=== PATIENT | female | born 1980 | race Caucasian/White ===

== ENCOUNTER 2016-07-05 09:22 | Inpatient (IN) | payer OTHER ==
[~2016-07-05] VITALS: Ht 167.6 cm; Wt 66.7 kg
[2016-07-05] VITALS (8 sets, daily range): BP systolic 120–150; BP diastolic 68–95
[~2016-07-05 09:22] MED LIST: FLAGYL500 MG PO; FOLIC ACID1 M1 PO; KETOROLAC TROME10 M1 PO; LASIX20 M1 PO; MULTI-DAY VITA1 EACH PO; PROVENTIL HFA6.7 GM INH; Vibramycin PO
--- NOTE | 2016-07-05 09:29 | NUR ---
PT REQUEST DETOX FOR ETOH. STATES LAST DETOX A WEEK AGO AT [facility]. LAST DRINK 4 HOURS AGO. PT DENIES SI/HI
--- NOTE | 2016-07-05 09:29 | NUR ---
PT STATES HX OF SEIZURES WITH WITHDRAWL
--- NOTE | 2016-07-05 09:48 | ED PSYCHIATRIC COMPLAINT ---
See Addendum History of Present Illness General Chief Complaint: ETOH/Drug Related Complaint Stated Complaint: BIBA DETOX Source: patient, EMS Exam Limitations: clinical condition Vital Signs & Intake/Output Vital Signs & Intake/Output Vital Signs Date Time Temp Pulse Resp B/P Pulse O2 O2 Flow FiO2 Ox Delivery Rate 07/05 1712 98.8 83 16 145/86 07/05 1649 98.8 83 16 145/86 98 Room Air 07/05 1444 80 16 124/92 07/05 1444 80 16 124/92 Room Air 07/05 1310 96.8 85 16 126/71 07/05 1310 96.8 85 16 126/71 98 Room Air 07/05 1130 96.6 79 16 145/95 07/05 1130 96.6 79 16 145/95 98 Room Air 07/05 1024 98.4 84 20 120/68 07/05 0928 97.6 84 20 120/87 97 Room Air Allergies Coded Allergies: codeine (Severe, ANAPHYLAXIS 05/15/16) venom-honey bee (BEE VENOM (HONEY BEE)) (ANAPHYLAXIS 05/15/16) Reconcile Medications No Known Home Medications Triage Note: PT REQUEST DETOX FOR ETOH. STATES LAST DETOX A WEEK AGO AT [facility]. LAST DRINK 4 HOURS AGO. PT DENIES SI/HI Triage Nurses Notes Reviewed? yes Onset: Abrupt Duration: hour(s): (FEW) Timing: multiple episodes today Severity: severe Associated Symptoms: anxiety : No Patient currently breastfeeds: No HPI: This is a 35-year-old female with history of alcohol abuse who presents to the ER requesting Ativan states that she is detoxing. She states her last drink was about 6 hours ago. Denies any drug use she states that it alcohol withdrawal seizure at home to weeks ago. She states that her skin is crawling. Denies chance of . (TRAY DWYER,BRITTANY) Past History Travel History Traveled to [place] past 21 day No Medical History Any Pertinent Medical History? see below for history Neurological: NONE EENT: allergies Cardiovascular: NONE Respiratory: asthma Gastrointestinal: NONE Hepatic: hepatitis C Renal: NONE Musculoskeletal: TENDONITIS L SHOULDER R KNEE TORN MENISCUS L ROTATOR CUFF & BICEP TEAR Psychiatric: anxiety, bipolar disease, depression, ADD Endocrine: NONE Blood Disorders: NONE Cancer(s): NONE LODGING HOUSE KEEPER/Reproductive: OVARIAN CYST History of MRSA: No History of VRE: No History of CDIFF: No Pneumonia Vaccine: 07/02/14 Surgical History Surgical History: L SHOULDER PINS BREAST AUGMENTATION ENDOSCOPY R KNEE knee surgery Psychosocial History Who do you live with Friend What is your primary language Malagasy Tobacco Use: Current Daily Use Daily Tobacco Use Amount/Type: => 5 Cigarettes daily ETOH Use: alcoholic Illicit Drug Use: denies illicit drug use Family History Family History, If Any: MOTHER, , Age 50-60; Cause: Lung cancer. Relation not specified for: FH: diabetes mellitus FH: heart disease Hx Contributory? No (BRITTANY SCOTT MD) Review of Systems Review of Systems Constitutional: Denies: chills, fever. EENTM: Reports: no symptoms. Respiratory: Denies: cough, short of breath. Cardiovascular: Denies: chest pain, palpitations. GI: Denies: abdominal pain. Genitourinary: Reports: no symptoms. Musculoskeletal: Reports: no symptoms. Skin: Reports: no symptoms. Neurological/Psychological: Reports: anxiety, depressed. Hematologic/Endocrine: Denies: bruising, bleeding, polyuria, polydipsia. Immunologic/Allergic: Denies: splenectomy. All Other Systems: Reviewed and Negative (BRITTANY SCOTT MD) Physical Exam Physical Exam General Appearance: well developed/nourished, mild distress Head: atraumatic Eyes: Bilateral: PERRL, EOMI. Ears, Nose, Throat: normal pharynx, normal ENT inspection, hearing grossly normal Neck: normal inspection, supple Respiratory: normal breath sounds Cardiovascular: regular rate/rhythm Gastrointestinal: soft, non-tender Extremities: normal range of motion Neurological/Psychiatric: awake, alert, anxious Appearance/Memory/Insight: disheveled, impaired insight Behavoir/Eye Contact/Speech: belligerent, compulsive, increased rate of speech Thoughts/Hallucinations: no apparent hallucination Skin: intact, normal color, warm/dry SAD PERSONS Done? patient not suicidal (BRITTANY SCOTT MD) Progress Differential Diagnosis: ALCOHOL ABUSE, ALCOHOL DETOX, POLYSUBSTANCE ABUSE Plan of Care: Orders Procedure Date/time Status Regular Diet 07/05 D Active Pathway - chart 07/05 1820 Active Pathway - chart 07/05 1811 Active CIWA 07/05 1811 Active CASE MANAGEMENT CONSULT 07/05 1455 Active EKG 07/05 1357 Active CIWA 07/05 0951 Active URINE DRUGS OF ABUSE 07/05 950 Complete HUMAN BETA HCG SCREEN 07/05 950 Complete ETHANOL 07/05 950 Complete COMPREHENSIVE METABOLIC PANEL 07/05 950 Complete CBC WITHOUT DIFFERENTIAL 07/05 950 Complete EKG 07/05 929 Active Current Medications Sig/Bruna Start time Last Medication Dose Stop Time Status Admin Lorazepam 0.5 MG ONCE 07/10 0000 UNVr (Ativan) 07/10 0001 Lorazepam 0.5 MG Q6H 07/09 0000 UNVr (Ativan) 07/09 180 Lorazepam 0.5 MG ONCE ONE 07/08 1800 AC (Ativan) 07/08 1801 Lorazepam 1 MG Q6H 07/08 0000 UNVr (Ativan) 07/08 1201 Lorazepam 1.5 MG Q12H 07/07 599 UNVr (Ativan) 07/07 1801 Lorazepam 1 MG Q12H 07/07 0000 UNVr (Ativan) 07/07 1201 Lorazepam 1.5 MG Q6 07/06 06 UNVr (Ativan) 07/06 1801 Lorazepam 2 MG Q2P PRN 07/05 1830 UNVr (Ativan) Lorazepam 1 MG Q2P PRN 07/05 1830 UNVr (Ativan) Cyanocobalamin/ 1 BAG DAILY 07/05 1820 UNVr Thiamine/Pyridoxine 07/07 1759 (Vitamin in I.V.) Dextrose/Water 1,000 ML (D5W 1000) Laboratory Tests 07/05/16 1452: Urine Opiates Screen 248.00, Methadone Screen 52, Barbiturate Screen < 60, Ur Phencyclidine Scrn < 6.00, Amphetamines Screen 111, U Benzodiazepines Scrn 482 H, Urine Cocaine Screen < 50, Urine Cannabis Screen < 5.00 07/05/16 1305: Anion Gap 21 H, Estimated GFR > 60, BUN/Creatinine Ratio 24.3, Glucose 115 H, Calcium 9.0, Total Bilirubin 0.6, AST 25, ALT 18, Alkaline Phosphatase 90, Total Protein 7.8, Albumin 4.5, Globulin 3.3, Albumin/Globulin Ratio 1.4, Total Beta HCG NEGATIVE, CBC w Diff NO MAN DIFF REQ, RBC 4.16 L, MCV 98.9, MCH 32.8 H, RDW 14.6 H, MPV 7.0 L, Gran % 55.4, Lymphocytes % 39.0, Monocytes % 3.2, Eosinophils % 2.0, Basophils % 0.4, Absolute Granulocytes 5.1, Absolute Lymphocytes 3.6 H, Absolute Monocytes 0.3, Absolute Eosinophils 0.2, Absolute Basophils 0, PUBS MCHC 33.1, Serum Alcohol 214.0 CIWA PROTOCOL. LABS, ETOH, DETOX. (BRITTANY SCOTT MD) Initial ED EKG: NSR, LAD Prior EKG: unchanged Hand-Off Endorsed To: RAQUEL TREVINO DO ([facility]) Endorsed Time: 1389 Pending: consult (CASE MANAGEMENT), labs, other (UTOX) (BRITTANY SCOTT MD) Departure Departure Disposition: STILL A PATIENT Condition: Stable Clinical Impression Primary Impression: Alcohol abuse Secondary Impressions: Alcohol intoxication Referrals: MENA KELLY DO (PCP/Family) Departure Forms: Customer Survey General Discharge Information Prescriptions: Current Visit Scripts No Known Home Medications (BRITTANY SCOTT MD) Departure Comments 07/05/16 5:24 PM Patient signed out to me by Dr. Scott. She is pending case management approval for alcohol detox Alcohol Withdrawl Admission ED Alcohol Detox Admission d/t: DTs/Seizure w/i last year (CIWA > 8) (RAQUEL TREVINO DO) Critical Care Note Critical Care Note Critical Care Time: 30-74 min (BRITTANY SCOTT MD)
--- NOTE | 2016-07-05 10:12 | NUR ---
PT TREMULOUS, UN-COOPERATIVE. SECURITY AT BEDSIDE. DEMANDING ATIVAN.
--- NOTE | 2016-07-05 10:21 | NUR ---
PT REDIREDTED TO ROOM, EXPLAINED POLICY AND PROCEDURE RE: WANDING, CLOTHING REMOVAL. AGREEABLE AT THIS TIME. MEDICATED FOR TREMORS. STATES "1 MG IS NOT ENOUGH. THEY WERE GIVING ME 3 MG IN MY NECK".
--- NOTE | 2016-07-05 10:54 | NUR ---
VOMITED, MEDICATED WITH ATIVAN 2 MG IM AND ZOFRAN 4 MG SL.
--- NOTE | 2016-07-05 11:07 | NUR ---
MULTIPLE SCABBED AEAS AND RASH NOTED ON FACE AND NECK.
--- NOTE | 2016-07-05 11:11 | NUR ---
ACCEPTED REPORT FROM JENNIE TRAMMELL. PT STANDING IN DOORWAY PUTTING BACITRACIN ON 2 FACIAL WOUNDS (ONE ABOVE AND ONE BELOW LIPS) WHICH SHE CLAIMS IS FROM A SEIZURE AND THAT SHE HIT HER FACE ON THE PAVEMENT. PT DENIES BROKEN TEETH. PT REPORTS LAST DRINK WAS THIS MORNING. PT REPORTS SHE IS HUNGRY. WILL ASK DR FELIZ FOR DIET ORDER.
--- NOTE | 2016-07-05 12:27 | NUR ---
PT STANDING IN DOORWAY YELLING "MY SKIN IS ON FIRE!! ITS ITCHING!!" PER MD FELIZ, MEDICATED WITH 50MG PO BENADRYL. PT STATING "ITS FROM MY WITHDRAWAL!!". PT TOOK MEDICATION BUT STATING "IT WONT WORK". INFORMED OF SAME SITTER AND SECURITY IN AREA
--- NOTE | 2016-07-05 13:11 | NUR ---
PT REMINDED THAT URINE SAMPLE IS NEEDED. PT DENIES NAUSEA/VOMITING. PT REPORTS SHE IS ANXIOUS AND AGITATED. PT REPORTS HEADACHE. REQUESTING MOTRIN. DR TRAY TYLER.
[2016-07-05 13:16] LABS: ABSOLUTE BASOPHIL COUNT 0 /CUMM (0.0-0.2); ABSOLUTE EOSINOPHIL COUNT 0.2 /CUMM (0.0-0.7); ABSOLUTE GRANULOCYTE CT 5.1 /CUMM (1.4-6.5); ABSOLUTE LYMPH COUNT 3.6 /CUMM (1.2-3.4); ABSOLUTE MONOCYTE COUNT 0.3 /CUMM (0.10-0.60); BASOPHIL % 0.4 % (0.0-2.0); GRANULOCYTE % 55.4 % (42.2-75.2); HEMATOCRIT 41.1 % (37-47); MEAN CORPUSCULAR HGB 32.8 PG (27.0-31.0); MEAN CORPUSCULAR HGB CONC 33.1 G/DL (33.0-37.0); MEAN CORPUSCULAR VOLUME 98.9 FL (81.0-99.0); PLATELET COUNT 432 /CUMM (130-400); RBC DISTRIBUTION WIDTH 14.6 % (11.5-14.5); RED BLOOD CELL CT 4.16 /CUMM (4.20-5.40); WHITE BLOOD CELL COUNT 9.3 /CUMM (4.8-10.8)
--- NOTE | 2016-07-05 13:45 | NUR ---
PT REQUESTING MOTRIN FOR A HEADACHE.
--- NOTE | 2016-07-05 13:51 | NUR ---
PT MEDICATED WITH MOTRIN FOR HEADACHE. PIS 11/08.
--- NOTE | 2016-07-05 14:45 | NUR ---
PT TREMULOUS AND SWEATY. PT REPORTS SHE IS NAUSEOUS AND IS VISIBLE ANXIOUS AND AGITATED. PT STATES HER CHEST HURTS WELL.
--- NOTE | 2016-07-05 14:56 | NUR ---
URINE TRIO SENT TO LAB
--- NOTE | 2016-07-05 15:00 | NUR ---
PT MEDICATED WITH ATIVAN 1MG PO. PT STATES THAT SHE IS SEEKING DETOX.
--- NOTE | 2016-07-05 16:07 | NUR ---
PT SITTING ON BED WITH TV ON, STILL TREMULOUS WITH FLUSHED FACE. PT STATED THAT IN THE PAST SHE HAS BEEN GIVEN IV ATIVAN FOR DETOX.
--- NOTE | 2016-07-05 17:11 | NUR ---
PT REPORTS HEADACHE, ANXIETY, NAUSEA AND TREMORS. PT LYING ON BED WATCHING TV. PT STATES SHE CAN DETOX AT [facility].
--- NOTE | 2016-07-05 17:58 | NUR ---
PT BREATHALYZER = .008 PT STATES SHE WANTS TO GO HOME AND GO TO [facility] FOR DETOX.
--- NOTE | 2016-07-05 18:05 | NUR ---
DR TREVINO AT BEDSIDE FOR EVAL
--- NOTE | 2016-07-05 18:38 | NUR ---
MEDICATED PT WITH ATIVAN 2MG + 2MG PO, ALSO WITH FOLIC ACID,VIT B1 AND MULTIVITAMIN.
--- NOTE | 2016-07-05 18:48 | NUR ---
Case mgmnt TSF: I went in and introduced myself to patient. Patient is requesting etox detox at this time. I will submit information to [facility]. Case management continuing to follow.
--- NOTE | 2016-07-05 19:00 | NUR ---
PT SITTING IN ROOM WATCHING TV. PT C/O TREMORS AND ANXIETY. PT BOUNCING LEG UP AND DOWN.
--- NOTE | 2016-07-05 19:40 | NUR ---
Case Mgmnt TSF: [facility] submitted for request for auth for patient. Will continue to monitor.
--- NOTE | 2016-07-05 20:25 | NUR ---
Case Mgmnt TSF: I checked CT [facility] and still no approval yet. CM continuing to follow.
--- NOTE | 2016-07-05 21:16 | NUR ---
PT TREMULOUS, ANXIOUS, REPORTS HEADACHE. PT DENIES NAUSEA AT THIS TIME. PT COOPERATIVE AT THIS TIME.
--- NOTE | 2016-07-05 21:27 | NUR ---
PT MEDICATED WITH ATIVAN 2MG PO PRN FOR CIWA = 17
--- NOTE | 2016-07-05 22:21 | History & Physical ---
TIMOTHY CARDONA MD 07/05/160: General Information and HPI MD Statement: I have seen and personally examined RUDDY BOONE I and documented this H&P. The patient is a 35 year old F who presented with a patient stated chief complaint of [requesting alcohol detox]. Source of Information: patient Exam Limitations: no limitations History of Present Illness: 35-year-old female with PMH of alcohol abuse, alcohol withdrawal seizures, ICU admission at [place] for alcohol detox and put in medical induced coma, anxiety, bipolar disorder, depression, PID, hep C, asthma, presented to the ED requesting alcohol detox. Pt was at [facility] 1 week ago also for alcohol detox, admitted for 2 days, and discharged on 2 pills of ativan which she did not fill. She went back to drinking as soon as she got discharged. She admits to drinking liters of vodka/beer/wine, whatever "has alcohol in it". Her last drink was the day of admission, about 4 hours prior to ED presentation. Her CIWA scores in ED 24,7,12,17,17,12,18. Pain scores 10,10,5,3,0,5. She received 14 mg PO ativan and 2 mg IM ativan in the ED. A few days ago, she reported having a seizure while she smoking outside her resident. Someone found her faceplanted, and unconscious. She bit the side of her tongue but denies urinary incontinence. She also reports she has had 6 previous alcohol withdrawal seizures. On ROS, she reports feeling hot, sweating, burning sensation on her skin, formication, headache. She is also anxious with tremors. She denies suicidal ideation and any intention to harm herself or others. FH significant for alcohol abuse in her mom, dad, and grandmother. Her mother of lung cancer. She lives in a hotel by herself, and her boyfriend pays for living expenses and stays with her sometimes. She currently smokes cigarette, did not specify the amount, but has been smoking for 15 years. Denies IV drug abuse. Pt was on methadone for opiate abuse in the past, but has been off since May 2016, and has been receiving naltrexone. She is due to her next naltrexone injection on Jul 11. She is allergic to codeine and her only meds are wellbutrin 150 for depression and naltrexone. Allergies/Medications Allergies: Coded Allergies: codeine (Severe, ANAPHYLAXIS 05/15/16) venom-honey bee (BEE VENOM (HONEY BEE)) (ANAPHYLAXIS 05/15/16) Home Med list No Known Home Medications Past History Travel History Traveled to [place] past 21 day No Medical History Neurological: NONE EENT: allergies Cardiovascular: NONE Respiratory: asthma Gastrointestinal: NONE Hepatic: hepatitis C Renal: NONE Musculoskeletal: TENDONITIS L SHOULDER R KNEE TORN MENISCUS L ROTATOR CUFF & BICEP TEAR Psychiatric: anxiety, bipolar disease, depression, ADD Endocrine: NONE Blood Disorders: NONE Cancer(s): NONE DIE CAST OPERATOR/Reproductive: OVARIAN CYST History of MRSA: No History of VRE: No History of CDIFF: No Surgical History Surgical History: L SHOULDER PINS BREAST AUGMENTATION ENDOSCOPY R KNEE knee surgery Past Family/Social History Family History Relations & Conditions if any MOTHER, , Age 50-60; Cause: Lung cancer. Relation not specified for: FH: diabetes mellitus FH: heart disease Psychosocial History Where do you live? Other (hotel) Who Do You Live With? self Services at Home: None Primary Language: Korean Smoking Status: Current Everyday Smoker ETOH Use: alcoholic Illicit Drug Use: denies illicit drug use Functional Ability ADLs Independent: dressing, eating, toileting, bathing. Ambulation: independent IADLs Independent: shopping, housework, finances, food prep, telephone, transportation , medication admin. Review of Systems Review of Systems Constitutional: Reports: chills, diaphoresis. Denies: fever. EENTM: Denies: visual changes (denies seeing sparkles). Cardiovascular: Denies: chest pain, palpitations. Respiratory: Denies: cough, short of breath. GI: Denies: abdominal pain, bloating. Exam & Diagnostic Data Last 24 Hrs of Vital Signs/I&O Vital Signs Date Time Temp Pulse Resp B/P Pulse O2 O2 Flow FiO2 Ox Delivery Rate 07/06 0022 97.8 74 16 142/79 98 07/05 2240 97.5 99 16 145/90 99 Room Air 07/05 2238 97.5 99 16 145/90 07/05 2113 97.1 93 16 150/94 95 Room Air 07/05 2112 97.1 93 16 150/94 07/05 1900 97.1 99 16 150/94 07/05 1900 97.1 99 16 150/94 95 Room Air 07/05 1712 98.8 83 16 145/86 07/05 1649 98.8 83 16 145/86 98 Room Air 07/05 1444 80 16 124/92 07/05 1444 80 16 124/92 Room Air 07/05 1310 96.8 85 16 126/71 07/05 1310 96.8 85 16 126/71 98 Room Air 07/05 1130 96.6 79 16 145/95 07/05 1130 96.6 79 16 145/95 98 Room Air 07/05 1024 98.4 84 20 120/68 07/05 0928 97.6 84 20 120/87 97 Room Air Intake & Output 07/06 0800 07/06 0000 07/05 1600 Intake Total 10 Output Total Balance 10 Intake, Oral 10 Patient 68.039 kg Weight Physical Exam General Appearance Alert, Oriented X3, Cooperative, Mild Distress Skin laceration above her lip and her chin HEENT Atraumatic, PERRLA, EOMI, Mucous Membr. moist/pink Neck Supple Cardiovascular Regular Rate, Normal S1, Normal S2, No Murmurs, Gallops, Rubs Lungs Clear to Auscultation, Normal Air Movement Abdomen Normal Bowel Sounds, Soft, No Tenderness Neurological Normal Speech Extremities No Edema Vascular Normal Pulses Last 24 Hrs of Labs/Angel: Laboratory Tests 07/05/16 1452: Urine Opiates Screen 248.00, Methadone Screen 52, Barbiturate Screen < 60, Ur Phencyclidine Scrn < 6.00, Amphetamines Screen 111, U Benzodiazepines Scrn 482 H, Urine Cocaine Screen < 50, Urine Cannabis Screen < 5.00 07/05/16 1305: Anion Gap 21 H, Estimated GFR > 60, BUN/Creatinine Ratio 24.3, Glucose 115 H, Calcium 9.0, Phosphorus Pending, Magnesium Pending, Total Bilirubin 0.6, AST 25, ALT 18, Alkaline Phosphatase 90, Creatine Kinase Pending, Total Protein 7.8, Albumin 4.5, Globulin 3.3, Albumin/Globulin Ratio 1.4, Total Beta HCG NEGATIVE, CBC w Diff NO MAN DIFF REQ, RBC 4.16 L, MCV 98.9, MCH 32.8 H, RDW 14.6 H, MPV 7.0 L, Gran % 55.4, Lymphocytes % 39.0, Monocytes % 3.2, Eosinophils % 2.0, Basophils % 0.4, Absolute Granulocytes 5.1, Absolute Lymphocytes 3.6 H, Absolute Monocytes 0.3, Absolute Eosinophils 0.2, Absolute Basophils 0, PUBS MCHC 33.1, Serum Alcohol 214.0 Assessment/Plan Assessment: 35-year-old female with PMH of alcohol abuse, alcohol withdrawal seizures, ICU admission at [place] for alcohol detox and put in medical induced coma, anxiety, bipolar disorder, depression, PID, hep C, asthma, requesting alcohol detox. Serum alcohol level 214, with AG 21. Max CIWA score 24, mostly tremors and anxiety. Urine benzo 382, Urine opiate 248, methadone 52. # Alcohol detox * Ativan 2 mg q6 PO scheduled, ativan taper. * Ativan 1mg or 2mg IV PRN CIWA * CIWA q2 * Social work consult in AM * Consider psych consult in AM * 3 X banana bag * 3 days of folic acid and thiamine * Multivitamin daily * Check phos, mag, CPK now and in AM # Depression * Continue wellbutrin 150 # Hx of opiate abuse - Next naltrexone due Jul 11 Diet: Regular DVT ppx: mech and pharm FULL CODE As Ranked By This Provider Problem List: 1. Alcohol abuse 2. Alcohol intoxication Core Measures/Miscellaneous Acute Coronary Syndrome ACS Diagnosis: No Cerebrovascular Accident CVA/TIA Diagnosis: No Congestive Heart Failure CHF Diagnosis: No Venous Thromboembolism VTE Risk Factors: Smoking VTE Prophylaxis Ordered Inpt: Mech & Pharm No Mech VTE prophylaxis d/t: No contraindications No VTE Pharm Prophylaxis d/t: No contraindications VTE Diagnosis: No VTE Type: NONE VTE Confirmed by (Test): NONE Severe Sepsis Severe Sepsis Present: No Septic Shock Septic Shock Present: No Miscellaneous Documentation Attending Case Discussed With: ANTONIA DC MD Primary Care Physician: MENA KELLY DO Patient sees these Specialists N/A Level of Patient Care: General Medicine ANTONIA DC 07/06/16 0206: Attending MD Review Statement Attending Statement Attending MD Statement: examined this patient, discuss w/resident/PA/COST ACCOUNTING ANALYST, agreed w/resident/PA/COST ACCOUNTING ANALYST, reviewed EMR data (avail), reviewed images, amended to note Attending Assessment/Plan: CC: Alcohol detox PMHx: Alcohol related seizure, alcohol abuse, previous infection of PID. Depression ?Hepatitis C?, Patient currently on naltrexone Patient presented for all called detox. Patient was admitted in [facility] about a 1 week back for similar complaints. 2 days after the discharge patient started to drink again. Patient does not quantify her alcohol intake. Last drink was a few hours before admission. Patient had a recent episode of loss of consciousness, she refers this as a seizure episode, she fell on her face and hit her upper lip. But did not follow in the hospital after that, wound is healing now. She does not recall any tongue bite at that episode or bowel bladder incontinence. Patient had multiple seizures secondary to alcohol in the past. Vitals: Afebrile, HR, RR, BP, O2 saturation in acceptable range. On examination anxious, a O 3, follows instructions, not delirious. Neck supple, no lymphadenopathy, tongue moist, healing wound on upper lip. CVS: S1-S2, RRR. RS: Clear air entry bilaterally present. Abdomen: Soft, NT, ND and the bowel sounds present, no right upper quadrant tenderness. No significant rashes are cellulitis, no focal neurological deficit. Labs: CBC, BMP, LFT, in acceptable range except bicarbonate 22 and anion gap 21. Alcohol level 214. A and P #1 alcohol withdrawal: Patient does not quantify it but admits heavy alcohol usage. Alcohol level high at presentation. Patient CIWA score high. Continue scheduled and when necessary Ativan as discussed according to CIWA score. Replace thiamine and folic acid. Continue gentle hydration. Seizure precautions. Check CPK. Check magnesium and phosphorus, replace if low. Patient's liver function appears normal, no right upper quadrant tenderness. #2 AG Acidosis: Probably secondary to alcohol along with starvation ketosis. Continue gentle hydration. #3 depression continue Wellbutrin. #4 DVT prophylaxis with Lovenox, avoid opiates, currently patient on naltrexone, next dose in July. GUIDO FRANK 07/06/16 0415: Resident Review Statement Resident Statement: examined this patient, discussed with international tax manager, agreed with international tax manager, reviewed EMR data (avail), reviewed images, amended to note Other Findings: This is 35-year-old female with PMH of alcohol abuse, multiple alcohol withdrawal seizures, ICU admission at [place] for alcohol detox and put in medical induced coma, anxiety, bipolar disorder, depression, pelvic inflammatory disease, hepatitis C, asthma, presented to the ED requesting alcohol detox. Last drink was today, patient states she drank a lot of vodka, beer and wine. Patient reports recent seizure with tongue bite. She reports visual hallucination, sweating, tremor, feeling anxious, burning sensation on her skin, formication. Patient deny any homicidal or suicidal ideation. Physical examination, lab and imaging as above. Problem list: -Alcohol withdrawal/detoxication -Hypokalemia, hypomagnesemia -Anoin gap metabolic acidosis -Thrombocytosis Plan: -Admit patient to general medicine floor -Vitals every shift -Start the patient on Ativan 2 mg by mouth every 6 -Start the patient on Ativan IV per [facility] protocol -Repeat potassium and magnesium as needed -Repeat CBC and basic panel electrolytes in the morning -Continue the patient IV banana bag -Continue the patient multivitamin supplement, thiamine and folic acid -fur floor worker consultation -Regular diet -Pain pathway -DVT prophylaxis: subcutaneous Lovenox -Full code
--- NOTE | 2016-07-05 22:38 | NUR ---
MEDICATED PT WITH ATIVAN 2MG AND SEROQUEL 50MG PO. PT CALM ANC COOPERATIVE AT THIS TIME.
[2016-07-06] VITALS (13 sets, daily range): BP systolic 140–167; BP diastolic 78–104
--- NOTE | 2016-07-06 00:30 | NUR ---
CO FEELINGJITTERY."I NEED MY ATIVAN"
--- NOTE | 2016-07-06 00:35 | NUR ---
VS TAKEN. PER PROTOCOL ATIVAN 2MG GIVEN.
--- NOTE | 2016-07-06 02:07 | Admission Certification ---
Admission Certification Certification Statement - As attending physician, I certify that at the time of - admission, based on clinical presentation, severity of - symptoms, need for further diagnostic testing and - therapeutic interventions, and risk of adverse outcomes - without in-hospital treatment, in my clinical assessment, - this patient requires an acute hospital stay for a minimum - of two nights or longer. I have also considered psychsocial - factors such as support system, advanced age, financial - issues, cognitive issues, and failed out-patient treatments, - past re-admission history, safety of patient, and lack of - compliance as applicable. Specific rationale supporting this admission is: Alcohol detox.
--- NOTE | 2016-07-06 04:29 | NUR ---
PT FRIEND RODNEY STOPPED AND DROPPED OFF HER CELL PHONE, LOCKED IN ER SAFE
--- NOTE | 2016-07-06 06:05 | NUR ---
AWAKE VERY ANXIOUS. SWEATY--PAPER SCRUBS CHANGED.
--- NOTE | 2016-07-06 06:15 | NUR ---
IV INSERTED AFTER GREAT DIFFICULTY NS UP 75ML/HR MAG SULFATE 1G IN 100ML NS AT 25ML/HR HUNG AT THIS TIME
--- NOTE | 2016-07-06 08:37 | NUR ---
SPOKE TO DR WESLEY SILVA REGARDING NS FLUIDS AND ALSO BANANA BAG ORDERS, WILL DC BANANA BAG.
--- NOTE | 2016-07-06 08:43 | PN- Housestaff ---
ROAUL DWYER,[facility] 07/06/16 0842: Subjective Follow-up For: Alcohol withdrawal seizures Subjective: Patient seen and examined this morning. She was lying in bed tremulous, anxious , sweating, her Ciwa has been 24 upon admission, today 17, vitals within normal limits. No other complaints Review of Systems Constitutional: Reports: see HPI. Objective Last 24 Hrs of Vital Signs/I&O Vital Signs Date Time Temp Pulse Resp B/P Pulse O2 O2 Flow FiO2 Ox Delivery Rate 07/06 1658 97.9 66 20 162/102 07/06 1605 97.9 66 20 162/102 99 Room Air 07/06 1248 98.0 88 20 140/80 07/06 1100 97.2 56 18 149/88 07/06 1047 97.2 56 18 149/88 99 Room Air 07/06 0830 96.4 61 16 164/93 96 Room Air 07/06 0815 96.4 61 16 164/93 / 0615 96.8 60 16 167/95 / 0615 96.8 60 16 167/95 96 Room Air 07/06 0031 97.8 74 16 142/79 /05 0022 97.8 74 16 142/79 98 / 2240 97.5 99 16 145/90 99 Room Air 07/05 2239 97.5 99 16 145/90 / 2114 97.1 93 16 150/94 95 Room Air / 2113 97.1 93 16 150/94 /04 1900 97.1 99 16 150/94 / 1900 97.1 99 16 150/94 95 Room Air Physical Exam General Appearance: Alert, Oriented X3, No Acute Distress Cardiovascular: Regular Rate, Normal S1, Normal S2 Lungs: Clear to Auscultation, Normal Air Movement Abdomen: Normal Bowel Sounds, Soft, No Tenderness Extremities: No Clubbing, No Cyanosis, No Edema Orders CIWA Score (last 24 hrs): 24, 17 Assessment/Plan Assessment: 35-year-old female with PMH of alcohol abuse, alcohol withdrawal seizures, ICU admission at [place] for alcohol detox and put in medical induced coma, anxiety, bipolar disorder, depression, PID, hep C, asthma, requesting alcohol detox. Serum alcohol level 214, with AG 21. Max CIWA score 24, mostly tremors and anxiety. Urine benzo 382, Urine opiate 248, methadone 52. # Alcohol detox * Ativan 2 mg q4 PO scheduled, ativan taper. * Ativan 2mg IV PRN CIWA * Social work consult * 3 X banana bag * 3 days of folic acid and thiamine * Multivitamin daily * will f/u phos, mag. # Depression * Continue wellbutrin 150 # Hx of opiate abuse - Next naltrexone due Jul 11 Diet: Regular DVT ppx: mech and pharm Problem List: 1. Alcohol intoxication Pain Ratin Pain Location: ne Pain Goal: Remain pain free Pain Plan: mil pp Tomorrow's Labs & Rationales: none JESSICA DWYER,JO 07/06/16 1136: Attending MD Review Statement Attending Statement Attending MD Statement: examined this patient, discuss w/resident/PA/L TACKER, agreed w/resident/PA/L TACKER, reviewed EMR data (avail), discussed with nursing, amended to note Attending Assessment/Plan: Patient seen and examined. Admitted for alcohol withdrawal syndrome. CIWA has been as high as 20 overnight. She has received about 80 mg of Ativan this presentation overnight. She is currently agitated and tremulous. She is mildly tachycardic. Recommendation: -Change her current Ativan regimen to 2 mg orally every 4 hours and 2 mg IV when necessary breakthrough. - Change IV fluids to lactated Ringer that 150 mL an hour. -Maintain fall and seizure precautions -Supplement magnesium and monitor serum chemistry and magnesium levels every 48 hours to ensure stability of her magnesium and potassium levels. -Continue her home regimen for depression and bipolar disorder. -field crop farmworker follow-up.
--- NOTE | 2016-07-06 10:00 | NUR ---
PT SLEEPING AT THIS TIME. RR EVEN AND UNLABORED. WILL CTM
--- NOTE | 2016-07-06 13:38 | NUR ---
PT ADMITTED TO ROOM 223-2 ROOM NOT READY AT THIS TIME
--- NOTE | 2016-07-06 14:13 | NUR ---
REPORT CALLED TO [address] [place] [address] Sav RODRIGUEZ. DISTRIBUTION CALLED FOR TRANSPORT TO ROOM 223.
--- NOTE | 2016-07-06 14:49 | NUR ---
MED WITH ATIVAN 2MG PO, TOLERATED WELL. AWAITING DISTRIBUTION TO ROOM 223.
--- NOTE | 2016-07-06 15:24 | NUR ---
TRANSPORT HERE FOR PT
--- NOTE | 2016-07-06 15:38 | NUR ---
Referral received this am via electronic grade recorder. This is a 35 year old female, admitted to the hospital last evening for a voluntary detox. She has been placed on the CIWA and has had some significant symptoms including nausea and vommiting; tremors, anxiety, sweats, visual hallucinations and headaches. She also has had 19 mg. of ativan in 24 hours. Will follow to better assess for interest and motivation in aftercare plans.
[2016-07-07] VITALS (15 sets, daily range): BP systolic 120–156; BP diastolic 80–96
--- NOTE | 2016-07-07 00:54 | NUR ---
1530 PATIENT ARRIVED TO FLOOR. BED LOW AND LOCKED. CALL LIGHT WITHIN REACH ALERT AND ORIENTED X 3. DENIES CHEST PAIN. ON ROOM AIR MEDICATION GIVEN FOR PAIN ATIVAN GIVEN PER CIWA PROTOCOL. WILL CONTINUE TO MONITOR
--- NOTE | 2016-07-07 07:58 | PN- Housestaff ---
RAOUL DWYER,[facility] 07/07/16 0758: Subjective Follow-up For: Alcohol withdrawal seizures Subjective: Patient seen and examined this morning. She was lying in bed in no acute distress. She still is complaining of being tremulous, anxious, sweaty, no hallucination, no seizures. CIWA overnight 0,0,9. Vitals wnl. Review of Systems Constitutional: Denies: chills, fever. Cardiovascular: Denies: chest pain, palpitations. Respiratory: Denies: cough, short of breath. Gastrointestinal: Denies: abdominal pain, constipation, diarrhea, nausea, vomiting. Genitourinary: Denies: dysuria, frequency. Objective Last 24 Hrs of Vital Signs/I&O Vital Signs Date Time Temp Pulse Resp B/P Pulse O2 O2 Flow FiO2 Ox Delivery Rate 07/07 599 97.8 106 18 144/80 07/07 0600 98.9 74 20 132/80 98 Room Air 07/07 0400 97.8 106 18 144/80 07/07 0206 97.8 106 20 144/80 98 Room Air 07/07 0200 97.8 106 18 144/80 07/07 0100 97.6 104 18 156/80 07/07 0013 97.6 104 20 156/80 95 Room Air / 0013 97.6 104 20 156/80 95 Room Air 07/07 0000 97.6 104 18 156/80 / 2200 99.3 65 20 160/104 /05 2148 60 160/104 / 2118 99.2 65 20 160/100 07/06 2000 99.3 65 20 160/104 98 Room Air 07/06 1958 99.2 65 20 160/100 /05 1900 98.7 62 20 150/78 07/06 1807 98.4 78 20 160/90 07/06 1658 97.9 66 20 162/102 / 1605 97.9 66 20 162/102 99 Room Air 07/06 1248 98.0 88 20 140/80 /05 1100 97.2 56 18 149/88 07/06 1047 97.2 56 18 149/88 99 Room Air Intake & Output 07/07 1600 06 0800 07/07 0000 Intake Total 1240 600 Output Total Balance 1240 600 Intake, IV 1000 Intake, Oral 240 600 Physical Exam General Appearance: Alert, Oriented X3, No Acute Distress Cardiovascular: Regular Rate, Normal S1, Normal S2, No Murmurs Lungs: Clear to Auscultation, Normal Air Movement Abdomen: Normal Bowel Sounds, Soft, No Tenderness Extremities: No Clubbing, No Cyanosis, No Edema Current Medications: Current Medications Sig/Bruna Start time Last Medication Dose Route Stop Time Status Admin Acetaminophen 650 MG .STK-MED ONE 07/06 2141 DC PO 07/06 214 Acetaminophen 650 MG Q6P PRN 07/05 2315 AC 07/06 PO 2145 Amlodipine Besylate 5 MG ONCE ONE 07/06 204 DC 07/06 PO 07/06 2045 214 Bupropion HCl 150 MG DAILY 07/06 1000 AC 07/07 PO 0839 Enoxaparin Sodium 40 MG DAILY 07/06 1000 AC 07/07 SC 0840 Folic Acid 0 .STK-MED ONE 07/06 0549 CAN PO Folic Acid 1 MG DAILY 07/05 1811 AC 07/07 PO 07/12 0000 0839 Ibuprofen 800 MG .STK-MED ONE 07/06 1815 DC PO 07/06 1816 Ibuprofen 600 MG Q6P PRN 07/05 2315 AC 07/06 PO 1838 Lactated Ringer's 1,000 ML Q6H 07/06 1115 DC 07/06 IV 07/06 2314 1726 Lorazepam 0.5 MG ONCE 07/10 0000 DC PO 07/10 0001 Lorazepam 0.5 MG Q6H 07/09 0000 DC PO 07/09 1801 Lorazepam 0.5 MG ONCE ONE 07/08 1800 CAN PO 07/08 1801 Lorazepam 1 MG Q6H 07/08 0000 DC PO 07/08 1201 Lorazepam 2 MG Q6 07/07 1200 DC PO Lorazepam 2 MG Q4 07/07 1000 UNVr PO Lorazepam 1.5 MG Q12H 07/07 0600 DC PO 07/07 1801 Lorazepam 1 MG Q12H 07/07 0000 DC PO 07/07 1201 Lorazepam 0 Q1P PRN 07/06 1545 AC 07/07 IV 0839 Lorazepam 0 .STK-MED ONE 07/06 1445 DC PO Lorazepam 2 MG Q4 07/06 1400 DC 07/07 PO 0729 Lorazepam 0 .STK-MED ONE 07/06 1244 DC .ROUTE Lorazepam 2 MG Q1 NEEDED PRN 07/06 1100 DC IV Lorazepam 0 .STK-MED ONE 07/06 0920 DC PO Lorazepam 0 .STK-MED ONE 07/06 0549 CAN PO Lorazepam 2 MG Q2P PRN 07/05 2315 DC IV Lorazepam 1 MG Q2P PRN 07/05 2315 DC IV Lorazepam 2 MG Q2P PRN 07/05 1830 DC 07/06 PO 0615 Lorazepam 1 MG Q2P PRN 07/05 1830 DC 07/06 PO 0920 Magnesium Oxide 400 MG ONE ONE 07/07 0115 DC 07/07 PO 07/07 0116 0154 Magnesium Sulfate 1 GM Q2H 07/07 0800 AC 07/07 Dextrose/Water 100 ML IV 07/07 1159 0839 Magnesium Sulfate 0 .STK-MED ONE 07/06 0548 CAN .ROUTE Multivitamins 1 TAB DAILY 07/05 1811 AC 07/07 PO 0840 Nicotine 14 MG DAILY 07/06 1000 AC 07/07 TOP 0840 Quetiapine Fumarate 50 MG QPM 07/07 0030 DC 07/07 PO 0030 Quetiapine Fumarate 50 MG QPM 07/05 2200 DC 07/05 PO 2237 Sodium Chloride 1,000 ML Q13H 07/06 0330 DC 07/06 IV 0615 Thiamine HCl 100 MG DAILY 07/05 1811 AC 07/07 PO 07/12 0000 0839 Last 24 Hrs of Lab/Angel Results Last 24 Hrs of Labs/Mics: Laboratory Tests 07/06/162114: Anion Gap 13, Estimated GFR > 60, BUN/Creatinine Ratio 17.1, Magnesium 1.5 L Assessment/Plan Assessment: 35-year-old female with PMH of alcohol abuse, alcohol withdrawal seizures, ICU admission at [place] for alcohol detox and put in medical induced coma, anxiety, bipolar disorder, depression, PID, hep C, asthma, requesting alcohol detox. Serum alcohol level 214, with AG 21. Max CIWA score 24, mostly tremors and anxiety. Urine benzo 382, Urine opiate 248, methadone 52. # Alcohol detox * Ativan 2 mg q4 PO scheduled, ativan taper. * Ativan 2mg IV PRN CIWA * Social work consult * 3 X banana bag * 3 days of folic acid and thiamine * Multivitamin daily * will f/u phos, mag. # Depression * Continue wellbutrin 150 # Hx of opiate abuse - Next naltrexone due Jul 11 Diet: Regular DVT ppx: mech and pharm Problem List: 1. Alcohol abuse 2. Alcohol intoxication Pain Ratin Pain Location: headache Pain Goal: Remain pain free Pain Plan: mild pp Tomorrow's Labs & Rationales: none JESSICA DWYER,JO 07/07/16 1157: Attending MD Review Statement Attending Statement Attending MD Statement: examined this patient, discuss w/resident/PA/CIRCULATION LIBRARIAN, agreed w/resident/PA/CIRCULATION LIBRARIAN, reviewed EMR data (avail), discussed with nursing, discussed with case mgmt, amended to note Attending Assessment/Plan: Patient resting comfortably at the time of examination and not in acute distress. However yesterday through this morning she is required a total of 9 mg of Ativan IV in addition to a standing oral dose. Her CIWA was reported as 20 earlier on this morning. Problems: 1. Alcohol withdrawal syndrome. 2. Alcohol related seizures 4. Bipolar disorder/depression 5. History of hepatitis C Plan: -Maintain Ativan 2 mg orally every 4 hours. Continue when necessary doses of IV Ativan. -IV hydration with lactated Ringer's is 100 mL an hour. -Repeat serum chemistry in 48 hours to ensure stability of her electrolytes particularly potassium, magnesium. -music worker consult
[2016-07-08 03:00] VITALS: BP 118/78
[2016-07-08 06:00] VITALS: BP 118/78
--- NOTE | 2016-07-08 08:59 | PN- Housestaff ---
See Addendum Subjective Follow-up For: Alcohol withdrawal seizures Subjective: Patient seen and examined this morning. Resting comfortably in bed with no new complaints. No events reported overnight. She continues to endorse tremors and headache, currently under control. Tremors improving. No hallucination, diaphoresis and seizures. CIWA for the past 12 hours ranging between 0 and 8. Vitals stable and WNL. Review of Systems Constitutional: Reports: see HPI. Objective Last 24 Hrs of Vital Signs/I&O Vital Signs Date Time Temp Pulse Resp B/P Pulse O2 O2 Flow FiO2 Ox Delivery Rate 07/08 599 98.2 60 18 118/78 98 Room Air 07/08 0300 98.2 60 16 118/78 07/07 2218 97.6 89 20 122/96 99 Room Air 07/07 2100 97.7 90 20 120/90 07/07 2033 97.6 89 20 122/96 99 Room Air 07/07 2000 97.6 98 20 122/96 07/07 1908 98.1 98 22 134/88 99 Room Air 07/07 1649 98.1 79 18 128/82 98 Room Air 07/07 1339 97.6 71 20 150/80 98 Room Air 07/07 1051 97.8 93 20 07/07 1005 97.8 93 20 140/80 99 Room Air Intake & Output 07/08 1600 07/08 0800 07/08 0000 Intake Total 1040 1040 Output Total Balance 1040 1040 Intake, IV 800 800 Intake, Oral 240 240 Physical Exam General Appearance: Alert, Oriented X3, Cooperative, No Acute Distress Other Physical Findings: Cardiovascular: Regular Rate, Normal S1, Normal S2, No Murmurs Lungs: Clear to Auscultation, Normal Air Movement Abdomen: Normal Bowel Sounds, Soft, No Tenderness Extremities: No Clubbing, No Cyanosis, No Edema Current Medications: Current Medications Sig/Bruna Start time Last Medication Dose Route Stop Time Status Admin Acetaminophen 650 MG .STK-MED ONE 07/07 1703 DC PO 07/07 1704 Acetaminophen 650 MG Q6P PRN 07/05 2315 AC 07/07 PO 1821 Bupropion HCl 150 MG DAILY 07/06 1000 AC 07/07 PO 0839 Enoxaparin Sodium 40 MG DAILY 07/06 1000 AC 07/07 SC 0840 Folic Acid 1 MG DAILY 07/05 1811 AC 07/07 PO 07/12 0000 0839 Ibuprofen 600 MG Q6P PRN 07/05 2315 AC 07/06 PO 1838 Ketorolac 15 MG ONCE ONE 07/075 DC 07/07 Tromethamine IV 07/07 Lactated Ringer's 1,000 ML Q10H 07/07 1030 AC 07/07 IV 2159 Lorazepam 0.5 MG ONCE 07/10 0000 DC PO 07/10 0001 Lorazepam 0.5 MG Q6H 07/09 0000 DC PO 07/09 1801 Lorazepam 1 MG Q6H 07/08 0000 DC PO 07/08 1201 Lorazepam 2 MG Q4 07/07 1000 AC 07/08 PO 0537 Lorazepam 0 Q1P PRN 07/06 1545 AC 07/07 IV 2029 Magnesium Sulfate 1 GM Q2H 07/07 0800 DC 07/07 Dextrose/Water 100 ML IV 07/07 1159 1048 Melatonin 3 MG ONCE ONE 07/07 2114 CAN PO 07/07 2115 Multivitamins 1 TAB DAILY 07/05 1811 AC 07/07 PO 0840 Nicotine 14 MG DAILY 07/06 1000 AC 07/07 TOP 0840 Quetiapine Fumarate 50 MG ONCE ONE 07/07 2114 CAN PO 07/07 211 Thiamine HCl 100 MG DAILY 07/05 181 AC 07/07 PO 07/12 0000 0839 Trazodone HCl 12.5 MG ONCE ONE 07/07 2114 DC 07/07 PO 07/07 Assessment/Plan Assessment: 35-year-old female with PMH of alcohol abuse, alcohol withdrawal seizures, ICU admission at [place] for alcohol detox and put in medical induced coma, anxiety, bipolar disorder, depression, PID, hep C, asthma, requesting alcohol detox. Serum alcohol level 214, with AG 21. Max CIWA score 24, mostly tremors and anxiety. Urine benzo 382, Urine opiate 248, methadone 52. # Alcohol detox * Continue Ativan taper - decrease Ativan to 2mg PO Q6 PO * Ativan PRN per CIWA protocol * Social work consult * 3 X banana bag * 3 days of folic acid and thiamine * Multivitamin daily * will f/u phos, mag. # Depression * Continue wellbutrin 150 # Hx of opiate abuse - Next naltrexone due Jul 11 Diet: Regular DVT ppx: mech and pharm Problem List: 1. Pelvic inflammatory disease 2. Leg edema 3. Alcohol abuse 4. Alcohol intoxication Pain Ratin Pain Location: headache Pain Goal: Remain pain free Pain Plan: Mild pain pathway Tomorrow's Labs & Rationales: None
[2016-07-08 13:54] VITALS: BP 120/64
--- NOTE | 2016-07-08 16:37 | Event Note ---
Event Note Event Note: Since 3 PM this afternoon was called to patient's bed multiple times throughout the day as patient was displaying very aggressive behavior towards the nursing staff. Hitting and attempting unsafe ambulation, pulling out IV lines, and threatening to leave AMA. Patient's boyfriend visited to her this afternoon and they both went to have a shower together and she also does attempted indecent exposure. Her boyfriend was asked to leave and since then patient was very agitated and angry. Despite one time dose of 2.5 mg of IM Zyprexa, 2 mg IV Ativan patient refused to cooperate and 4. hard restraints were required. At this time she was deemed did not have capacity to make decisions and she was formed. Her vitals remained stable, on physical examination pupils were dilated, equally reactive. Rest of physical examination was unremarkable. EKG showed QTC prolongation of 502. Plan: In view of her QTC prolongation and no IV access; IV Haldol was the option left to manage her agitation and aggressive behavior, however it has QTC prolonging effects and can lower seizure threshold, in view of the fact she had hypomagnesemia, decision was made to transfer patient to ICU Attending aware of the above events and informed Sign out given to the ICU team
--- NOTE | 2016-07-08 19:48 | NUR ---
NURSING NOTE: PATIENT PLACED IN 4 POINT HARD RESTRAINTS. PT UNSAFE TO SELF AND OTHERS. PATIENT HITTING, SPITTING, AND BITING STAFF. PATIENT MEDICATED WITH 2.5MG OF IM ZYPREXA, 1MG OF IM ATIVAN, AND 2MG OF IM ATIVAN PER EMAR ORDER. PT TRANSFERRED TO ICU TO BE MONITORED AND MEDICATED WITH IM HALDOL.
[2016-07-08 20:00] VITALS: BP 120/70
--- NOTE | 2016-07-08 21:00 | NUR ---
PT A/Ox3, VERBALLY ABUSIVE TO STAFF. ATIVAN GTTS INFUSING AT 3MG/HR. [address]RA[address]TS IN PLACE. SITTER AT BEDSIDE. PT REQUESTING FOOD AND JUICE. TOLERATING PO WITHOUT DIFFICULTY. PT HAS INCREASED AGITATION WITH NEED TO VOID. PT UNABLE TO GET OOB ON ATIVAN DRIP AND AGITATION AND PT REFUSING TO USE BEDPAN. GAINES IN PLACE PER MD. SKIN GROSSLY INTACT. WILL CONTINUE TO MONITOR.
[2016-07-08 21:18] LABS: ABSOLUTE BASOPHIL COUNT 0 /CUMM (0.0-0.2); ABSOLUTE EOSINOPHIL COUNT 0.3 /CUMM (0.0-0.7); ABSOLUTE GRANULOCYTE CT 8.6 /CUMM (1.4-6.5); ABSOLUTE LYMPH COUNT 2.7 /CUMM (1.2-3.4); ABSOLUTE MONOCYTE COUNT 0.3 /CUMM (0.10-0.60); BASOPHIL % 0.4 % (0.0-2.0); EOSINOPHIL % 2.5 % (0-5); GRANULOCYTE % 72.3 % (42.2-75.2); MEAN CORPUSCULAR HGB 33.2 PG (27.0-31.0); MEAN CORPUSCULAR HGB CONC 33.5 G/DL (33.0-37.0); MEAN CORPUSCULAR VOLUME 98.8 FL (81.0-99.0); MEAN PLATELET VOLUME 8.2 FL (7.4-10.4); PLATELET COUNT 300 /CUMM (130-400); RED BLOOD CELL CT 3.75 /CUMM (4.20-5.40); WHITE BLOOD CELL COUNT 11.8 /CUMM (4.8-10.8)
[2016-07-08 22:00] VITALS: BP 120/74
--- NOTE | 2016-07-08 23:00 | NUR ---
PT THREATENED TO SLIT STAFFS THROAT. RESTRAINTS IN PLACE CONTINUING TO INCREASE ATIVAN GTT PER PROTOCOL.
[2016-07-09] VITALS: BP 118/69; BP 122/64; BP 126/88
--- NOTE | 2016-07-09 01:00 | NUR ---
PT MORE COOPERATIVE. PT REQUESTING HER SLEEPING MED FROM HOME. NOTIFIED. TRAZADONE 50 MG ORDERED. PT FOUND TO BE SLEEPING WHEN RENTERING ROOM WITH MED. WILL GIVE WHEN PT WAKES UP.
[2016-07-09 02:00] VITALS: BP 120/76
--- NOTE | 2016-07-09 03:00 | NUR ---
SLOWLY ABLE TO RELEASE RESTRAINTS. PT COOPERATIVE WITH CARE. PT NO LONGER USING THREATENING LANGUAGE. PT MADE AWARE THAT IF SHE ATTEMPTS TO GET OOB OR THREATENS STAFF AGAIN RESTRAINTS WILL BE PLACED BACK ON. PT AGREEABLE WITH CARE
[2016-07-09 04:00] VITALS: BP 118/62
[2016-07-09 06:00] VITALS: BP 118/69
[2016-07-09 06:54] LABS: ABSOLUTE BASOPHIL COUNT 0.1 /CUMM (0.0-0.2); ABSOLUTE EOSINOPHIL COUNT 0.4 /CUMM (0.0-0.7); ABSOLUTE GRANULOCYTE CT 8.2 /CUMM (1.4-6.5); ABSOLUTE LYMPH COUNT 3.6 /CUMM (1.2-3.4); ABSOLUTE MONOCYTE COUNT 0.6 /CUMM (0.10-0.60); BASOPHIL % 0.5 % (0.0-2.0); EOSINOPHIL % 3.2 % (0-5); GRANULOCYTE % 63.7 % (42.2-75.2); HEMATOCRIT 35.9 % (37-47); MEAN CORPUSCULAR HGB 33.5 PG (27.0-31.0); MEAN CORPUSCULAR HGB CONC 33.7 G/DL (33.0-37.0); MEAN CORPUSCULAR VOLUME 99.4 FL (81.0-99.0); MEAN PLATELET VOLUME 7.9 FL (7.4-10.4); PLATELET COUNT 283 /CUMM (130-400); RED BLOOD CELL CT 3.61 /CUMM (4.20-5.40)
[2016-07-09 07:12] LABS: WHITE BLOOD CELL COUNT 12.9 /CUMM (4.8-10.8)
[2016-07-09 08:00] VITALS: BP 110/60
--- NOTE | 2016-07-09 08:56 | Cons- CRCU ---
MAGDALENO VELÁZQUEZ 07/09/16 0855: General Information and HPI Consulting Request Date of Consult: 07/09/16 Requested By: DR torey Red Reason for Consult: alcohol withdrawal Source of Information: patient Exam Limitations: agitated History of Present Illness: This is a 35-year-old female with past medical history of alcohol abuse, alcohol withdrawal seizures, previous ICU admission at [place] for alcohol detoxification and put in medical induced coma, anxiety, bipolar disorder, depression on wellbutrin, PID, hepatitis C, asthma,opiate dependence on naltrexone presents to the emergency department on 07/05/2016 requesting for alcohol detoxification. She was at [facility] one week prior to admission for alcohol detoxification, and was discharged on by mouth Ativan (2 pills remaining) which she did not fill. She went back to drinking as soon as she got discharged from [facility] 5 days prior to admission.Normally she admits to drinking a liter of water,/beer/wine, whatever alcohol she gets her hands on. Her last drink was 4 hours prior to admission on 07/05/2016. She was admitted to the general medicine floor for alcohol detoxification. She was hemodynamically stable and afebrile on admission. She was started on Ativan 2 mg every 6 hourly in addition to IV Ativan per CIWA protocol and her electrolytes were followed and repleted as necessary. She was doing fine ,was on 2 mg every 4 of by mouth scheduled Ativan in addition to 2 mg IV when necessary Ativan, untill afternoon of 07/08/2016, around 3 PM she was very aggressive to was the nursing staff, pulling out IV lines, attempting unsafe ambulation, very agitated and angry, received additional Ativan, IM Zyprexa, and required Ativan drip. Her EKG showed QT prolongation of 502, therefore Haldol was never given, and she was transferred to ICU for the need of increased Ativan and close monitoring. CIWA scores from [facility] : 82, 19, 17, 26, 18 CIWA overnight and today morning : 18, 22, 18, 5, 16, 20, 13 Vitals today morning temperature of 98.6, pulse of 92, respiration of 18, blood pressure 110/60, she was 98% saturating on room air. She had a white count of 12.9 today morning, stable chemistries, normal creatinine, mg of 1.5 and phosphorus of 5.3. Allergies/Medications Allergies: Coded Allergies: codeine (Severe, ANAPHYLAXIS 05/15/16) venom-honey bee (BEE VENOM (HONEY BEE)) (ANAPHYLAXIS 05/15/16) Home Med List: No Known Home Medications Current Medications: Current Medications Sig/Bruna Start time Last Medication Dose Route Stop Time Status Admin Acetaminophen 650 MG Q6P PRN 07/05 2315 AC 07/07 PO 1821 Al Hydroxide/Mg 30 ML ONCE ONE 07/09 829 DC 07/09 Hydroxide PO 07/09 0831 0857 Bupropion HCl 150 MG DAILY 07/06 1000 AC 07/09 PO 1021 Chlordiazepoxide HCl 75 MG Q4 07/09 1400 AC PO Chlordiazepoxide HCl 50 MG ONCE ONE 07/09 1015 DC 07/09 PO 07/09 1016 1022 Chlordiazepoxide HCl 25 MG ONCE ONE 07/09 0800 DC 07/09 PO 07/09 0801 0621 Cyanocobalamin/ 1 BAG DAILY@2100 07/08 2100 DC 07/08 Thiamine/Pyridoxine IV 2227 Dextrose/Water 1,000 ML Enoxaparin Sodium 40 MG DAILY 07/06 1000 AC 07/09 SC 1021 Folic Acid 1 MG DAILY 07/09 1010 DC PO Folic Acid 1 MG DAILY 07/05 1811 AC 07/09 PO 07/12 0000 1020 Haloperidol 1 MG ONCE ONE 07/08 1900 DC 07/08 IM 07/08 1901 1921 Haloperidol 0.5 MG ONCE ONE 07/08 1445 CAN IM 07/08 1446 Ibuprofen 600 MG Q6P PRN 07/05 2315 AC 07/09 PO 1022 Lactated Ringer's 1,000 ML Q10H 07/07 1030 DC 07/07 IV 2159 Lorazepam 0.5 MG ONCE 07/10 0000 DC PO 07/10 0001 Lorazepam 0 Q1P PRN 07/09 0915 AC 07/09 IV 1000 Lorazepam 100 MG Q11H 07/09 0830 AC 07/09 Dextrose/Water 1,000 ML IV 0920 Lorazepam 0.5 MG Q6H 07/09 0000 DC PO 07/09 1801 Lorazepam 50 MG Q24H 07/08 1915 DC 07/09 Dextrose/Water 500 ML IV 0614 Lorazepam 50 MG Q24H 07/08 1900 CAN Dextrose/Water 500 ML IV Lorazepam 2 MG ONCE ONE 07/08 1830 DC 07/08 IM 07/08 1831 1832 Lorazepam 1 MG ONCE ONE 07/08 1730 DC 07/08 IM 07/08 1731 1743 Lorazepam 2 MG ONE ONE 07/08 1430 DC 07/08 IV 07/08 1431 1510 Lorazepam 2 MG Q6 07/08 1200 DC 07/08 PO 1746 Lorazepam 0 Q1P PRN 07/06 1545 DC 07/08 IV 1440 Magnesium Chloride 64 MG DAILY 07/08 1158 AC 07/09 PO 1021 Magnesium Sulfate 1 GM ONCE ONE 07/09 0815 AC 07/09 Dextrose/Water 100 ML IV 07/09 1214 0857 Magnesium Sulfate 1 GM ONCE ONE 07/08 2345 DC 07/09 Dextrose/Water 100 ML IV 07/09 0344 0040 Multivitamins 1 TAB DAILY 07/09 1010 AC PO Multivitamins 1 TAB DAILY 07/05 1811 DC 07/08 PO 1012 Nicotine 14 MG DAILY 07/06 1000 AC 07/09 TOP 1021 Olanzapine 2.5 MG ONCE ONE 07/08 1700 DC 07/08 IM 07/08 1701 1707 Thiamine HCl 100 MG DAILY 07/09 1009 DC PO Thiamine HCl 100 MG DAILY 07/05 1811 AC 07/09 PO 07/12 0000 1021 Trazodone HCl 50 MG ONCE ONE 07/08 2345 DC 07/09 PO 07/08 2346 0230 Review of Systems Review of Systems Constitutional: Reports: malaise, weakness. Denies: chills, diaphoresis, fever, unexplained weight loss. EENTM: Denies: blurred vision, double vision, visual changes, eye pain, eye drainage. Cardiovascular: Reports: peripheral edema. Denies: chest pain, edema, orthopena, palpitations. Respiratory: Denies: cough, hemoptysis, orthopnea, short of breath, sputum production, stridor, wheezing. GI: Reports: nausea. Denies: abdominal pain, bloating, constipation, diarrhea, distention, melena. Genitourinary: Reports: no symptoms. Musculoskeletal: Reports: muscle pain. Denies: back pain, gout, joint pain, joint swelling, muscle stiffness, neck pain. Skin: Denies: cysts, change in skin color, change in hair/nails, dryness, erythema. Neurological/Psychological: Denies: anxiety, ataxia, cognitive dysfunction, confusion, depressed. Hematologic/Endocrine: Denies: bruising, bleeding, polyuria, polydipsia. Immunologic/Allergic: Reports: no symptoms. All Other Systems: Reviewed and Negative Past History Travel History Traveled to [place] past 21 day No Medical History Blood Transfusion Hx: No Neurological: NONE EENT: CODEINE AND BEE ALLERGY Cardiovascular: NONE Respiratory: asthma Gastrointestinal: NONE Hepatic: hepatitis C Renal: NONE Musculoskeletal: TENDONITIS L SHOULDER R KNEE TORN MENISCUS L ROTATOR CUFF & BICEP TEAR Psychiatric: anxiety, bipolar disease, depression, ADD Endocrine: NONE Blood Disorders: NONE Cancer(s): NONE HEAVY EQUIPMENT RENTAL ASSOCIATE/Reproductive: OVARIAN CYST Surgical History Surgical History: L SHOULDER PINS BREAST AUGMENTATION ENDOSCOPY R KNEE knee surgery Family History Relations & Conditions If Any: MOTHER, , Age 50-60; Cause: Lung cancer. Relation not specified for: FH: diabetes mellitus FH: heart disease Psychosocial History Where Do You Live? Home (hotel) Who Do You Live With? self Services at Home: None Primary Language: Japanese Smoking Status: Current Everyday Smoker ETOH Use: alcoholic Illicit Drug Use: denies illicit drug use Functional Ability ADLs Independent: dressing, eating, toileting, bathing. Ambulation: independent IADLs Independent: shopping, housework, finances, food prep, telephone, transportation , medication admin. Exam & Diagnostic Data Last 24 Hrs of Vital Signs/I&O Vital Signs Date Time Temp Pulse Resp B/P Pulse O2 O2 Flow FiO2 Ox Delivery Rate 07/09 799 98.6 92 18 110/60 98 Room Air 07/09 0600 80 12 118/69 07/09 0400 78 16 118/62 07/09 0356 100 Room Air 07/09 0200 98.7 92 20 120/76 08 0000 98.7 94 18 122/64 07/09 0000 100 Room Air 07/09 0000 98.7 94 20 126/88 98 Room Air 07/08 2200 97.7 98 20 120/74 07/08 1999 97.7 108 20 120/70 07/08 1999 100 Room Air 07/08 1354 97.0 100 20 120/64 97 Room Air Intake & Output 07/09 1600 08 0800 07/09 0000 Intake Total 2430 1420 Output Total 530 500 Balance 1900 920 Intake, IV 1830 140 Intake, Oral 600 1280 Number 0 0 Bowel Movements Output, Urine 530 500 Physical Exam General Appearance: alert, awake, anxious, agitated an agressive Head: atraumatic, normal appearance Eyes: Bilateral: PERRL, EOMI. Ears, Nose, Throat: normal pharynx, normal ENT inspection, hearing grossly normal Neck: normal inspection, supple, full range of motion Respiratory: normal breath sounds, chest non-tender, no respiratory distress, quiet respiration, lungs clear Cardiovascular: regular rate/rhythm Peripheral Pulses: 2+ brachial (R), 2+ brachial (L), 2+ radial (R), 2+ radial (L) Gastrointestinal: normal bowel sounds, soft, non-tender Back: normal inspection, normal range of motion Extremities: normal inspection, normal capillary refill, normal range of motion Neurologic/Psych: no motor/sensory deficits, awake, alert, oriented x 3 Cranial Nerves: normal hearing, normal speech, PERRL Reflexes: 2+: bicep (R), bicep (L), knee (R), knee (L). Skin: intact Lymphatic: no anterior cervical héctor Last 48 Hrs of Labs/Angel: Laboratory Tests 07/09/16 0605: Anion Gap 11, Estimated GFR > 60, Glucose 91, Calcium 9.0, Phosphorus 5.3 H, Magnesium 1.5 L, Total Bilirubin 0.5, AST 25, ALT 28, Creatine Kinase 330 H, Albumin 3.6, CBC w Diff NO MAN DIFF REQ, RBC 3.61 L, MCV 99.4 H, MCH 33.5 H, RDW 14.0, MPV 7.9, Gran % 63.7, Lymphocytes % 28.2, Monocytes % 4.4, Eosinophils % 3.2, Basophils % 0.5, Absolute Granulocytes 8.2 H, Absolute Lymphocytes 3.6 H, Absolute Monocytes 0.6, Absolute Eosinophils 0.4, Absolute Basophils 0.1, PUBS MCHC 33.7 07/09/16 0600: Magnesium Cancelled 07/08/162044: Anion Gap 19 H, Estimated GFR > 60, Glucose 82, Calcium 9.1, Phosphorus 3.8, Magnesium 1.4 L, Total Bilirubin 0.6, AST 36, ALT 24, Albumin 4.2, CBC w Diff NO MAN DIFF REQ, RBC 3.75 L, MCV 98.8, MCH 33.2 H, RDW 14.0, MPV 8.2, Gran % 72.3, Lymphocytes % 22.5, Monocytes % 2.3, Eosinophils % 2.5, Basophils % 0.4, Absolute Granulocytes 8.6 H, Absolute Lymphocytes 2.7, Absolute Monocytes 0.3, Absolute Eosinophils 0.3, Absolute Basophils 0, PUBS MCHC 33.5 07/08/16 2015: Urine Opiates Screen < 100.00, Methadone Screen < 40, Barbiturate Screen < 60, Ur Phencyclidine Scrn < 6.00, Amphetamines Screen 134, U Benzodiazepines Scrn 120, Urine Cocaine Screen < 50, Urine Cannabis Screen < 5.00 Assessment/Plan Impression/Plan: In summary this is a 35-year-old female with past medical history of alcohol abuse, prior alcohol which all seizures, previous ICU admission for alcohol detoxification and put in medically induced, anxiety, bipolar disorder, depression on Wellbutrin, PID, hepatitis C, asthma, opiate dependence on naltrexone, initially admitted on the general medicine floor for alcohol detoxification, started withdrawing with very high CIWA 3 days after admission with her last drink on 07/05/2016, transfers to ICU secondary to increase need of Ativan and Ativan drip along with close monitoring. Problem list along with assessment and plan #1. Alcohol detoxification. Continue Ativan taper as per CIWA protocol. Continue Librium 75 mg by mouth every 4 hourly. Continue thiamine, folic acid, multivitamin by mouth. Continue regular diet per oral. Psychiatric consult appreciated. #2.Depression Continue wellbrutirn #3 h/o opiate abuse continue naltrexone #4 Hypomagnesemia and hyperphaphatemia Replete as needed, continue to montior #5 Agitation/agressive behavior zyprexa 2.5 prn if needed continue to monitor QTC for prolongation as this was prolonged previously. DVT PX : Lovenox Regular diet. FC Problem List: 1. Alcohol abuse 2. Alcohol intoxication 3. Hypomagnesemia Consult Acknowledgment - Thank you for your consult request. TERY PEREZ MD 07/09/16 0909: Assessment/Plan Other Findings/Comments: Trey Camarena M.D. have examined this patient, reviewed available EMR data, personally reviewed images, discussed with resident/PA/CUTTING AND PRINTING MACHINE OPERATOR, discussed management plan with housestaff and nursing staff, discussed managment plan all of healthcare providers, discussed management plan with patient and/or family, agreed with resident/PA/CUTTING AND PRINTING MACHINE OPERATOR. The past history and parts of the chart have been autopopulated. Impression 35-year-old woman with alcohol dependence and history of withdrawal seizures, anxiety, bipolar, depression, hepatitis C and asthma. I will grated to the ICU for Ativan drip given significant alcohol withdrawal. Plan - Ativan drip to [facility] protocol - Librium 75 mg by mouth every 4 - Monitor and replete electrolytes as needed - Thiamine, folic acid, multivitamins PO - Psychiatry input DVT prophylaxis at all times TTS 40 minutes Consult Acknowledgment - Thank you for your consult request.
--- NOTE | 2016-07-09 10:53 | NUR ---
@0800-PT ALERT/AGITATED/ANXIOUS. USING FOUL LANGUAGE TOWARDS STAFF. ORIENTED TO PERSON AND PLACE ONLY. SITTER REMAINS AT BEDSIDE. RESTRAINTS REMAIN OFF AT THIS TIME. ATIVAN GTT INFUSING AT 8MG/HR AND TITRATED UP TO 9MG/HR AT THIS TIME FOR SAS 5. CIWA 18-MEDICATED WITH 2MG IV BOLUS VIA PUMP. PT RECIEVED 1X OF PO LIBRIUM 25MG AT 0600. PSYCH CONSULT ORD BY JAZMIN. CONT ON RA, LUNGS CLEAR. O2SAT 98%. NSR HR 80-90S. BP STABLE. AFBEBRILE. REG DIET PROVIDED AND CONSUMED 100% OF MEAL. PT DOES C/O ACID PAIN IN STOMACH-MEDICATED WITH 1X MAALOX AT THIS TIME. ABD SOFT. DENIES NAUSEA. GAINES IN PLACE, [place] AMTS OF URINE NOTED, CLEAR YELLOW. RENEWED BY BRENDA AT 0850. SKIN INTACT EXCEPT FOR RASH NOTED TO CHIN AND UPPER LIP-BACITRACIN APPLIED PER REQUEST OF PT. IV MAG BOLUS INFUSING FOR MAG 1.5 THIS AM. CONT TO MONITOR CLOSELY. CALL ALEJANDRO WITHIN REACH.
--- NOTE | 2016-07-09 10:57 | NUR ---
@0900-PT BECAME PROGRESSIVELY MORE AGITATED, AGGRESSIVE AND THREATENING TO ASSAULT STAFF WITH PHONE AND IV POLE. ORDER #7 CALLED AND THIS TIME. SECURITY AT BEDSIDE AND ORDER OBTAINED TO PLACE PT BACK IN 4PT HARD RESTRAINTS FOR SAFETY FOR PT AND STAFF. ATIVAN BOLUS ADMINISTERED VIA PUMP PER CIWA SCALE AND ATIVAN GTT INCREASED TO 10MG AT THIS TIME. SITTER REMAINS AT BEDSIDE. PT CONT TO USE FOUL LANGUAGE TOWARDS STAFF. CONT TO MONITOR CLOSELY.
--- NOTE | 2016-07-09 10:59 | NUR ---
@1000-DR PEREZ AND HOUSESTAFF AT BEDSIDE TO OMI. SAS REMAINS 5 AND CIWA 15. MEDICATED WITH 1MG BOLUS AND TITRATED GTT TO 11MG. RESTRAINTS REMAIN IN PLACE FOR CONT THREATS AND PT WANTING TO LEAVE AMA. PT ALSO MEDICATED WITH 1X OF LIBRIUM 50MG FOR TOTAL OF 75MG THIS AM AND WILL START ON LIBRIUM SCHED 75MG Q4-NEXT DOSE AT 1400. MAG BOLUS COMPLETE. PT ALSO COMPLAINS OF HEADACHE 6/10-MEDICATED WITH PRN MOTRIN. WILL REASSESS PT AT 1100 WITH PLANS TO ATTEMPT IN RELEASING 1 UPPER EXTREMITY HARD RESTRAINT. CONT TO MONITOR CLOSELY.
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
--- NOTE | 2016-07-09 12:35 | NUR ---
@1100-LUE HARD RESTRAINT REMOVED. PT COOP. ATIVAN GTT REMAINS AT 11MG/HR. PT CONT TO USE FOUL LANGUAGE AT TIMES BUT ABLE TO RESTORE PT TO CALM AND COOP STATE. SITTER REMAINS AT BEDSIDE. PSYCHIATRY AT BEDSIDE.
--- NOTE | 2016-07-09 12:36 | NUR ---
@1200-LUE RESTRAINT REMAINS OFF AND RLE HARD RESTRAINT REMOVED. NEW ORDER OBTAINED FOR RUE/LLE HARD RESTRAINTS. PT MORE CALM. ATIVAN GTT TITRATED DOWN TO 10MG/HR. PLAN TO RELEASE 1 EXTREMITY AT A TIME. PT AGREES WITH PLAN. LUNCH PROVIDED. SITTER REMAINS AT BEDSIDE. HYGIENE PROVIDED ALONG WITH SHAMPOO CAP. REPEAT EKG DONE AND GIVEN TO HOUSESTAFF. CONT TO MONITOR CLOSELY. CALL ALEJANDRO WITHIN REACH.
--- NOTE | 2016-07-09 13:45 | NUR ---
@1300-LLE HARD RESTRAINT REMOVED. PT REMAINS WITH RUE HARD RESTRAINT ONLY. SITTER REMAINS AT BEDSIDE. PT REMAINS CALM BUT VERY SARCASTIC AT TIMES AND STATES: "I AM JOKING WHEN I SAY IM GOING TO HIT YOU OR THROW THINGS." REMINDED PT THAT SHE IS IN AN ICU BEING TREATED FOR WITHDRAWEL AND JOKING ABOUT HARMING SELF AND OTHERS IS NOT APPROPRIATE. ATIVAN GTT CONT AT 10MG/HR. PLAN TO DISCONITNUE RUE RESTRAINT AT 1400. CALL ALEJANDRO WITHIN REACH.
[2016-07-09 16:00] VITALS: BP 110/70
--- NOTE | 2016-07-09 16:16 | NUR ---
@1600-PT SHOWING MORE AGITATION, ANXIETY AT THIS TIME. MEDICATED WITH PRN ATIVAN DOSE PER CIWA. MEDICATED WITH PRN PO ZYPREXA AND TITRATED ATIVAN GTT UP 11MG FROM 10MG. PT CONT WITH KATIE VEST AND 1:1 SITTER. NO THREATS TOWARDS STAFF OR SELF AT THIS TIME BUT CONT TO STATE : "I WANT TO SIGN OUT AMA." PT DISTRACTED WITH MAGAZINES AND SUDOKO PUZZLES PROVIDED BY VOLUNTEER. CONT TO MONITOR CLOSELY AND PROVIDE SUPPORT AND COMFORT NEEDED
--- NOTE | 2016-07-09 18:07 | NUR ---
@1800-PT SLEEPING. CALM, COOP. ATIVAN GTT TITRATED DOWN TO 11MG FROM 12MG AND MEDICATED WITH SCHED ZYPREXA. SITTER AND KATIE REMAIN IN PLACE. CONT TO MONITOR CLOSELY. VSS.
--- NOTE | 2016-07-09 22:00 | NUR ---
PT. PULLED PROTECTIVE KERLEX OFF IV SITE, SAYS "I WANT THIS ATIVAN IN MY IV STOPPED, I DONT NEED THIS ANYMORE, THIS HOSPITAL SUCKS, YOU DONT KNOW WHAT YOU ARE DOING" DR. ISLAS TO BEDSIDE, EXPLAINED TO PT. THAT SHE IS DETOXING FROM ALCOHOL AND NEEDS THE ATIVAN AT THIS TIME, BUT WE WILL GIVE HER LIBRIUM ORDERED AND TRY TO GET THE ATIVAN DOWN AND THEN TO OFF BUT IT WILL TAKE SOME TIME, WONT HAPPEN RIGHT AWAY, PT. AGREED TO PLAN
[2016-07-10] VITALS (8 sets, daily range): BP systolic 101–139; BP diastolic 59–80
[2016-07-10 03:20] LABS: ABSOLUTE BASOPHIL COUNT 0.1 /CUMM (0.0-0.2); ABSOLUTE EOSINOPHIL COUNT 0.4 /CUMM (0.0-0.7); ABSOLUTE GRANULOCYTE CT 5.7 /CUMM (1.4-6.5); ABSOLUTE LYMPH COUNT 2.8 /CUMM (1.2-3.4); ABSOLUTE MONOCYTE COUNT 0.6 /CUMM (0.10-0.60); EOSINOPHIL % 4.1 % (0-5); GRANULOCYTE % 60.2 % (42.2-75.2); HEMATOCRIT 35.6 % (37-47); MEAN CORPUSCULAR HGB 33.1 PG (27.0-31.0); MEAN CORPUSCULAR HGB CONC 33.5 G/DL (33.0-37.0); MEAN CORPUSCULAR VOLUME 98.9 FL (81.0-99.0); MEAN PLATELET VOLUME 7.6 FL (7.4-10.4); PLATELET COUNT 269 /CUMM (130-400); RBC DISTRIBUTION WIDTH 14.3 % (11.5-14.5); WHITE BLOOD CELL COUNT 9.6 /CUMM (4.8-10.8)
--- NOTE | 2016-07-10 07:38 | PN- Resident CRCU ---
Subjective HPI/CRCU Issues: 1. Alcohol withdrawl/Alcohol use disorder 2. Substance induced mood disorder 3. ADHD 24 Hour Events: I saw and examined the patient today morning. She is still on Ativan drip @2mcg/ hr. Alert and oriented but still delirious. Reports that she had a bad migrane headache. Compared to yesterday she looks much better. She is asking for vivitrol shot tomorrow. Objective Vital Signs & I&O Last 8 Hrs of Vitals and I&O: Intake & Output 07/10 1600 Intake Total 870 Output Total 850 Balance 20 Intake, IV 250 Intake, Oral 620 Output, Urine 850 Patient 66.678 kg Weight Afebrile, HR of 65-95, BP of 110/80mmHg, on room air. SAS of 3-4 I/O - 3850/1030 On ativan drip Exam General Appearance: alert, awake, anxious, mild distress Head: atraumatic, normal appearance Ears, Nose, Throat: normal pharynx, normal ENT inspection Respiratory: normal breath sounds Cardiovascular: regular rate/rhythm, normal peripheral pulses Gastrointestinal: normal bowel sounds, soft, non-tender Extremities: normal inspection, normal capillary refill, normal range of motion Cranial Nerves: normal hearing, normal speech, PERRL Skin: intact IV (Peripheral) Still Needed? Yes IV Drips IV Drips: Ativan drip Nutrition Nutrition: P.O. diet Current Medications: Current Medications Sig/Bruna Start time Last Medication Dose Route Stop Time Status Admin Acetaminophen 650 MG .STK-MED ONE 07/10 0150 DC PO 07/10 0151 Acetaminophen 650 MG Q6P PRN 07/05 2315 AC 07/10 PO 0154 Bupropion HCl 150 MG DAILY 07/06 1000 AC 07/10 PO 1017 Chlordiazepoxide HCl 50 MG Q6 07/10 1200 AC 07/10 PO 1155 Chlordiazepoxide HCl 75 MG Q4 07/09 1400 DC 07/10 PO 0600 Enoxaparin Sodium 40 MG DAILY 07/06 1000 AC 07/10 SC 1017 Folic Acid 1 MG DAILY 07/05 1811 AC 07/10 PO 07/12 0000 1016 Ibuprofen 600 MG Q6P PRN 07/05 2315 AC 07/09 PO 1022 Lorazepam 50 MG Q10H 07/10 0600 AC 07/10 Dextrose/Water 500 ML IV 1602 Lorazepam 0.5 MG ONCE 07/10 0000 DC PO 07/10 0001 Lorazepam 100 MG Q10H 07/09 1900 DC 07/09 Dextrose/Water 1,000 ML IV 1822 Lorazepam 0 Q1P PRN 07/09 0915 AC 07/09 IV 1400 Magnesium Chloride 64 MG DAILY 07/08 1158 AC 07/10 PO 1017 Magnesium Sulfate 1 GM ONCE ONE 07/10 0745 DC 07/10 Dextrose/Water 100 ML IV 07/10 1144 1030 Melatonin 5 MG AT BEDTIME 07/09 2200 AC PO Multivitamins 1 TAB DAILY 07/09 1010 AC 07/10 PO 1017 Nicotine 14 MG DAILY 07/06 1000 AC 07/10 TOP 1017 Olanzapine 2.5 MG ONCE ONE 07/09 2100 DC 07/09 PO 07/09 2101 2145 Olanzapine 2.5 MG ONCE ONE 07/09 2045 CAN IM 07/09 2046 Olanzapine 2.5 MG DAILY NEEDED PRN 07/09 1430 AC 07/09 PO 1600 Ondansetron HCl 4 MG ONCE ONE 07/09 2100 DC 07/09 IV 07/09 2101 2052 Thiamine HCl 100 MG DAILY 07/05 1811 AC 07/10 PO 07/12 0000 1017 Trazodone HCl 50 MG ONE TIME ONE 07/10 0200 DC 07/10 PO 07/10 0201 0359 Trazodone HCl 50 MG ONCE ONE 07/09 2300 DC 07/09 PO 07/09 2301 2322 Trimethobenzamide HCl 200 MG Q6-PRN PRN 07/09 2045 AC IM Impression/Plan Impression/Problem List Impression: Patient is a 35-YO F with PMH of alcohol abuse, prior alcohol which all seizures , previous ICU admission for alcohol detoxification and put in medically induced , anxiety, bipolar disorder, depression on Wellbutrin, PID, hepatitis C, asthma, opiate dependence on naltrexone, initially admitted on the general medicine floor for alcohol detoxification, started withdrawing with very high CIWA 3 days after admission with her last drink on 07/05/2016, transfers to ICU secondary to increase need of Ativan and Ativan drip along with close monitoring. Today she is doing much better than the time she came in and currently still delirious. On ativan drip. Alcohol detoxification * Continue Ativan taper as per CIWA protocol. * Librium 50 mg by mouth every 6 hourly. * Continue thiamine, folic acid, multivitamin by mouth. * Continue regular diet per oral. * Psychiatric consult appreciated. Depression * On welbutrin XL 150mg at home. * currently continuing the medication, in light of her seizures it would better be stopped. opiate abuse * Asking for vivitrol injection tomorrow. * will consider as per her clinical situation tomorrow. Hypomagnesemia and hyperphaphatemia * Today morning her Mag of 1.8, Phos of 4.4 (normal) * Repleted mag, will monitor BEP daily Agitation/agressive behavior * zyprexa 2.5 prn if needed * Monitoring for QTc prolongation - today it is 490. DVT PX : * Lovenox Code status * Full Code Diet - Regular diet. Problem List: 1. Alcohol abuse 2. Alcohol intoxication 3. Hypomagnesemia Pain Ratin Pain Location: headache Pain Plan: Tylenol 650mg Q6 PRN Tomorrow's Labs & Rationales: ICU bundle cbc Plan DVT/Prophylaxis: pharmacological, SC lovenox
--- NOTE | 2016-07-10 10:41 | PN- CRCU ---
Subjective HPI/Critical Care Issues: pt seen and examined remains on 2mg ativan drip librium 75q4 derrick vest no n/v/d/c no cp no bess Objective Current Medications: Current Medications Sig/Bruna Start time Last Medication Dose Route Stop Time Status Admin Acetaminophen 650 MG Q6P PRN 07/05 2315 AC 07/10 PO 0154 Bupropion HCl 150 MG DAILY 07/06 1000 AC 07/09 PO 1021 Chlordiazepoxide HCl 75 MG Q4 07/09 1400 AC 07/10 PO 0600 Chlordiazepoxide HCl 50 MG ONCE ONE 07/09 1015 DC 07/09 PO 07/09 1016 1022 Cyanocobalamin/ 1 BAG DAILY@2100 07/08 2100 DC 07/08 Thiamine/Pyridoxine IV 2227 Dextrose/Water 1,000 ML Enoxaparin Sodium 40 MG DAILY 07/06 1000 AC 07/09 SC 1021 Folic Acid 1 MG DAILY 07/09 1010 DC PO Folic Acid 1 MG DAILY 07/05 1811 AC 07/09 PO 07/12 0000 1020 Ibuprofen 600 MG .STK-MED ONE 07/09 1003 DC PO 07/09 1004 Ibuprofen 600 MG Q6P PRN 07/05 2315 AC 07/09 PO 1022 Lorazepam 50 MG Q10H 07/10 0600 AC 07/10 Dextrose/Water 500 ML IV 0559 Lorazepam 0.5 MG ONCE 07/10 0000 DC PO 07/10 0001 Lorazepam 100 MG Q10H 07/09 1900 DC 07/09 Dextrose/Water 1,000 ML IV 1822 Lorazepam 0 Q1P PRN 07/09 0915 AC 07/09 IV 1400 Lorazepam 100 MG Q11H 07/09 0830 DC 07/09 Dextrose/Water 1,000 ML IV 0920 Magnesium Chloride 64 MG DAILY 07/08 1158 AC 07/09 PO 1021 Magnesium Sulfate 1 GM ONCE ONE 07/10 0745 AC Dextrose/Water 100 ML IV 07/10 1144 Magnesium Sulfate 1 GM ONCE ONE 07/09 0715 DC 07/09 Dextrose/Water 100 ML IV 07/09 1214 0857 Melatonin 5 MG AT BEDTIME 07/09 2200 AC PO Multivitamins 1 TAB DAILY 07/09 1010 AC 07/09 PO 1157 Nicotine 14 MG DAILY 07/06 1000 AC 07/09 TOP 1021 Olanzapine 2.5 MG ONCE ONE 07/09 2099 DC 07/09 PO 07/09 2100 214 Olanzapine 2.5 MG ONCE ONE 07/09 2044 CAN IM 07/09 2045 Olanzapine 2.5 MG DAILY NEEDED PRN 07/09 1430 AC 07/09 PO 1600 Ondansetron HCl 4 MG ONCE ONE 07/09 2099 DC 07/09 IV 07/09 2100 205 Thiamine HCl 100 MG DAILY 07/09 1009 DC PO Thiamine HCl 100 MG DAILY 07/05 1811 AC 07/09 PO 07/12 0000 1021 Trazodone HCl 50 MG ONE TIME ONE 07/10 0200 DC 07/10 PO 07/10 020 0359 Trazodone HCl 50 MG ONCE ONE 07/09 2300 DC 07/09 PO 07/09 2300 2322 Trimethobenzamide HCl 200 MG Q6-PRN PRN 07/09 2044 AC IM Vital Signs & I&O Last 24 Hrs of Vitals and I&O: Vital Signs Date Time Temp Pulse Resp B/P Pulse O2 O2 Flow FiO2 Ox Delivery Rate 07/10 0852 Room Air 07/10 0852 61 16 117/74 07/10 0000 98.2 67 20 108/64 95 Room Air 07/09 1600 98.0 82 20 110/70 98 Room Air Intake & Output 07/10 1600 07/10 0800 07/10 0000 Intake Total 690 1540 Output Total 1600 3250 Balance -910 -1710 Intake, IV 490 820 Intake, Oral 200 720 Number 0 0 Bowel Movements Output, Urine 1600 3250 Patient 147 lb Weight Exam Other Physical Findings: gen awake and alert heent ncat cvs s1, s2 lungs ctab abd soft bs+ ext no edema Results Last 24 Hrs of Lab Results: Laboratory Tests 07/10/16 0310: Anion Gap 11, Estimated GFR > 60, Glucose 112 H, Calcium 9.3, Phosphorus 4.4, Magnesium 1.8, Total Bilirubin 0.5, AST 20, ALT 31, Albumin 3.8, CBC w Diff NO MAN DIFF REQ, RBC 3.60 L, MCV 98.9, MCH 33.1 H, RDW 14.3, MPV 7.6, Gran % 60.2 , Lymphocytes % 28.8, Monocytes % 5.9, Eosinophils % 4.1, Basophils % 1.0, Absolute Granulocytes 5.7, Absolute Lymphocytes 2.8, Absolute Monocytes 0.6, Absolute Eosinophils 0.4, Absolute Basophils 0.1, PUBS [facility] 33.5 07/09/16 1058: Serum Alcohol Cancelled Impression/Plan Impression/Plan Impression/Plan: Impression 35-year-old woman with alcohol dependence and history of withdrawal seizures, anxiety, bipolar, depression, hepatitis C and asthma. Upgraded to the ICU for Ativan drip given significant alcohol withdrawal. Plan - Ativan drip to [facility] protocol - Librium 50 mg by mouth every 6 - Monitor and replete electrolytes as needed - Thiamine, folic acid, multivitamins PO - Psychiatry input - remove burgess DVT prophylaxis at all times TTS 40 minutes
--- NOTE | 2016-07-10 16:00 | NUR ---
ASSUMED CARE OF PATIENT. PATIENT REMAINS AGITATED AND ATTEMPTING TO GET OUT OF BED. KATIE VEST RESECURED AND SITTER AT BEDSIDE. PATIENT VERY UPSET THAT WE WILL NOT RETURN HER VALUABLES AND CELL PHONE AT THIS TIME. PATIENT ALSO WITH INCREASED TREMORS AND MENTAL CLOUDING. ATIVAN BOLUS AND DRIP INCREASE TO 4MG/HR COMPLETED ORDERED. UNABLE TO COMPLETE HEAD TO TOE ASSESSMENT AT THIS TIME.
--- NOTE | 2016-07-10 17:00 | NUR ---
PATIENT NOW SEVERLY AGITATED SCREAMING OBSCENITIES, THREATENING STAFF AND ATTEMPTING TO PULL OUT IV. ORDER 10 CALLED AND MD CALLED TO ROOM. PATIENT PLACED IN 4 POINT RESTRAINTS PER MD ORDER AND ATIVAN BOLUS GIVEN. ATIVAN DRIP NOW AT 5MG PER HOUR.
--- NOTE | 2016-07-10 18:32 | PN- Psychiatry ---
Assessment/Plan Impression: The patient is nearing the end of her alcohol detox treatment. Diagnoses (Patient report): Bipolar, ADD, depression, anxiety, alcohol and opiates. Drug adverse reactions: Risperidone - "I woke up at night screaming." Depakote - "I won't take that because my sister killed herself while on that." Hydroxyzine - "it doesn't work [for anxiety]" Medications that the patient reports that help her include: Prozac, Lamictal, Wellbutrin, Vivitrol, Vyvanse, Suboxone CT MILITARY ADMINISTRATIVE TECHNICIAN report shows no orders for Vyvanse or Suboxone within the past year. The patient is asking whether she can receive her Vivitrol/Naltrexone shot here, but unfortunately, we do not stock this expensive form of the medication. If the patient's liver is functioning properly, we may consider starting her on naltrexone by mouth when she is opioid-free for 7-10 days. Urine toxocology on showed opiate level of 248. She must stop bupropion/Wellbutrin, as this medication can lower the seizure threshold, something to avoid in chronic alcohol users. She reports having a seizure recently. The patient is no longer followed in [place] by Dr. Jeffries, as she was asked to leave the program. She had been in [facility] last summer when lamotrigine was started, but is no longer there, either. She is apprarently followed at the [facility] in [place], when she received, per the [facility] rec, one dose of Vivitrol 380 mg IM for 14 days on 06/13/2016; this medication is normally dosed at intervals of 30 days. The patient report of her bipolar javi is cloudy, although she reports she has not had a trial on lithium, which would be the gold standard for bipolar javi. She had a trial on risperidone, which she failed, but apparently no other antimania medications. She refuses to use Depakote, which would be second line treatment for javi. Atypical antipsychotics, another choice, are probably not a good choice, since they can lower the seizure threshold. We may consider carbemazepine/Tegretol, which will require level checking, and which should not be used with antipsychotics, as it will lower the serum level of those medications. Suggestion: 1. ETOH Detox protocol, including daily thiamine, folate and MVI. 2. Stop bupropion XL 150 mg PO daily. This was last ordered and dispensed on 12/2015, and is not a current medication. It can lower the seizure threshold; the patient reports having an alcohol withdrawal-related seizure "the other day. " 3. Trazodone 50 mg PO at bedtime PRN for insomnia. May be repeated X1 one hour later PRN. 4. No Vivitrol (Not stocked here) or naltrexone until opiod-free for 7-10 days, and then only after tolerating low challenge dosing without withdrawal. Also, if the patient requires opioid/opiate pain medication, it will not work, and the patient could overdose trying to stop pain. She must verbalize understanding of this, and it should be documented as such. The patient had opioids in her system , per urine tox on 07/05/16. 5. Olanzapine 2.5 mg PO Daily as needed for agitation/disorganized thinking. Hold olanzapine/Zyprexa if arrhythmia or if QTc greater than 475 mS. 6. Repeat EKG. If QTc prolongation, please consult pharmacy for their recommendation on identifying possible contributors, other than olanzapine. 7. We will consider carbamazepine as a possible antimanic agent, which will also offer some protection from seizure. The patient should not have any liver derangement, and should be advised of the hazards of becoming , if this medication is started. We will discuss this further on 07/11/2016. We will continue to follow along. Thank you for asking us to participate in [facility] care Julius Cobian APRN, pager [phone]. Subjective Subjective: The patient is alert, oriented to person, place, but not day, "my memory is shot ," indicating that she has problems with both long-term and short-term memory, "maybe it's from the alcohol." She is in an untied Jasper vest sitting on her bed. She denies auditory, tactile or visual hallucinations, and presents no aristides delusions. The patient denies suicidal or homicidal ideation; she denies any history of suicide attempt. The patient endorses racing thoughts she cannot control, but later states that she does not have them all the time. She is unable to offer a clear picture of her manic episodes, which apprently are continuous. She states that she will stay up all night and clean everything in this state. She reports that she is homeless, and living in hotels, and is asking for her phone back so that she can make arrangements for a place to live after discharge. Longest sobriety was 4 months while in senior care for DUI 8 years ago. She reports finishing an IOP program, "State-run, they all suck." Reports the her hepatitis C, acquired from needles, has "cleaned it self out." She denies using other street/rec drugs, but then admits using cannabis 2X/year. Support system is her father, and her boyfriends, Bryn and Bethel. The patient has been to , but has no sponsor. Objective Last 24 Hrs of Vital Signs/I&O Current Medications Sig/Bruna Start time Last Medication Dose Route Stop Time Status Admin Acetaminophen 650 MG .STK-MED ONE 07/10 0150 DC PO 07/10 0151 Acetaminophen 650 MG Q6P PRN 07/05 2315 AC 07/10 PO 0154 Bupropion HCl 150 MG DAILY 07/06 1000 AC 07/10 PO 1017 Chlordiazepoxide HCl 50 MG Q6 07/10 1200 AC 07/10 PO 1155 Chlordiazepoxide HCl 75 MG Q4 07/09 1400 DC 07/10 PO 0600 Enoxaparin Sodium 40 MG DAILY 07/06 1000 AC 07/10 SC 1017 Folic Acid 1 MG DAILY 07/05 1811 AC 07/10 PO 07/12 0000 1016 Ibuprofen 600 MG Q6P PRN 07/05 2315 AC 07/09 PO 1022 Lorazepam 50 MG Q10H 07/10 0600 AC 07/10 Dextrose/Water 500 ML IV 1602 Lorazepam 0.5 MG ONCE 07/10 0000 DC PO 07/10 0001 Lorazepam 100 MG Q10H 07/09 1900 DC 07/09 Dextrose/Water 1,000 ML IV 1822 Lorazepam 0 Q1P PRN 07/09 0915 AC 07/09 IV 1400 Magnesium Chloride 64 MG DAILY 07/08 1158 AC 07/10 PO 1017 Magnesium Sulfate 1 GM ONCE ONE 07/10 0745 DC 07/10 Dextrose/Water 100 ML IV 07/10 1144 1030 Melatonin 5 MG AT BEDTIME 07/09 2200 AC PO Multivitamins 1 TAB DAILY 07/09 1010 AC 07/10 PO 1017 Nicotine 14 MG DAILY 07/06 1000 AC 07/10 TOP 1017 Olanzapine 2.5 MG ONCE ONE 07/09 2099 DC 07/09 PO 07/09 2100 214 Olanzapine 2.5 MG ONCE ONE 07/09 2044 CAN IM 07/09 2045 Olanzapine 2.5 MG DAILY NEEDED PRN 07/09 1430 AC 07/09 PO 1600 Ondansetron HCl 4 MG ONCE ONE 07/09 2099 DC 07/09 IV 07/09 2100 205 Thiamine HCl 100 MG DAILY 07/05 1811 AC 07/10 PO 07/12 0000 1017 Trazodone HCl 50 MG ONE TIME ONE 07/10 0200 DC 07/10 PO 07/10 0201 0359 Trazodone HCl 50 MG ONCE ONE 07/09 2300 DC 07/09 PO 07/09 230 2322 Trimethobenzamide HCl 200 MG Q6-PRN PRN 07/09 2044 AC IM Vital Signs Date Time Temp Pulse Resp B/P Pulse O2 O2 Flow FiO2 Ox Delivery Rate 07/10 1600 95 Room Air 07/10 1600 98.0 68 18 122/80 95 Room Air 07/10 1417 70 16 111/59 07/10 1251 98.1 70 22 101/65 07/10 1251 98 Room Air 07/10 0852 Room Air 07/10 0852 61 16 117/74 07/10 0000 98.2 67 20 108/64 95 Room Air Intake & Output 07/10 1600 07/10 0800 07/10 0000 Intake Total 519 236 7654 Output Total 850 1600 3250 Balance 20 -910 -1710 Intake, IV 250 490 820 Intake, Oral 620 200 720 Number 0 0 Bowel Movements Output, Urine 850 1600 3250 Patient 147 lb Weight
--- NOTE | 2016-07-10 19:00 | NUR ---
PATIENT BENT HEAD DOWN TO WRIST AND WAS ABLE TO PLACE PART OF RESTRAINT CORD IN MOUTH AND WOULD NOT LET GO. SECURITY CALLED AND UNABLE TO REMOVE CORD DUE TO BITING RISK FROM PATIENT. MD NOTIFIED AND PATIENT GIVEN ADDITIONAL ATIVAN BOLUS. SITTER AT BEDSIDE AND INSTRUCTED TO MONITOR PATIENTS BREATHING AND WHEN DROWSY REMOVE RESTRAINT FROM MOUTH.
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
--- NOTE | 2016-07-10 20:38 | NUR ---
Following patients progress as it relates to her detox. Sandra was transferred to the [facility] over the weekend requiring 4 point restraints and the initiation of an ativan drip. Sandra has been followed by psychiatry while here and has been discharged from her most recent therapist. Will collaborate with psychiatry and assist with aftercare planning.
[2016-07-11] VITALS (13 sets, daily range): BP systolic 90–123; BP diastolic 54–80
--- NOTE | 2016-07-11 00:30 | NUR ---
PT AWAKE,LOOKS UP WHEN CALLED HER NAME. RESTLESS AND A LITTLE AGITATED. ON ATIVAN AT 11MG/H. HARD RESTRAINTS X [address] SITTER AT BEDSIDE. NSR 90"S MANUAL BP 110/70. SATURATION 100% ON RA, LUNGS SOUND CLEAR. SATURATION 100% ON RA, LUNGS SOUND CLEAR.
[2016-07-11 04:58] LABS: ABSOLUTE BASOPHIL COUNT 0 /CUMM (0.0-0.2); ABSOLUTE EOSINOPHIL COUNT 0.2 /CUMM (0.0-0.7); ABSOLUTE GRANULOCYTE CT 7.5 /CUMM (1.4-6.5); ABSOLUTE LYMPH COUNT 2.6 /CUMM (1.2-3.4); ABSOLUTE MONOCYTE COUNT 0.7 /CUMM (0.10-0.60); BASOPHIL % 0.4 % (0.0-2.0); EOSINOPHIL % 2.1 % (0-5); GRANULOCYTE % 67.8 % (42.2-75.2); HEMATOCRIT 38.5 % (37-47); MEAN CORPUSCULAR HGB 33.1 PG (27.0-31.0); MEAN CORPUSCULAR HGB CONC 33.2 G/DL (33.0-37.0); MEAN CORPUSCULAR VOLUME 99.6 FL (81.0-99.0); MEAN PLATELET VOLUME 8.1 FL (7.4-10.4); PLATELET COUNT 277 /CUMM (130-400); RBC DISTRIBUTION WIDTH 13.9 % (11.5-14.5); RED BLOOD CELL CT 3.86 /CUMM (4.20-5.40); WHITE BLOOD CELL COUNT 11.1 /CUMM (4.8-10.8)
--- NOTE | 2016-07-11 09:13 | PN- CRCU ---
Subjective HPI/Critical Care Issues: [facility] nvdc no cp no dyspnea Objective Current Medications: Current Medications Sig/Bruna Start time Last Medication Dose Route Stop Time Status Admin Acetaminophen 650 MG Q6P PRN 07/05 2315 AC 07/10 PO 0154 Bupropion HCl 150 MG DAILY 07/06 1000 DC 07/10 PO 1017 Chlordiazepoxide HCl 50 MG Q6 07/10 1200 AC 07/11 PO 0607 Chlordiazepoxide HCl 75 MG Q4 07/09 1400 DC 07/10 PO 0600 Enoxaparin Sodium 40 MG DAILY 07/06 1000 AC 07/10 SC 1017 Folic Acid 1 MG DAILY 07/05 1811 AC 07/10 PO 07/12 0000 1016 Ibuprofen 600 MG Q6P PRN 07/05 2315 AC 07/09 PO 1022 Lorazepam 100 MG Q10H 07/10 2200 AC 07/11 Dextrose/Water 1,000 ML IV 0838 Lorazepam 50 MG Q10H 07/10 0600 DC 07/10 Dextrose/Water 500 ML IV 07/10 2200 1602 Lorazepam 0 Q1P PRN 07/09 0915 AC 07/09 IV 1400 Magnesium Chloride 64 MG DAILY 07/08 1158 AC 07/10 PO 1017 Magnesium Oxide 400 MG ONE ONE 07/11 729 DC 07/11 PO 07/11 730 0838 Magnesium Sulfate 1 GM ONCE ONE 07/10 0745 DC 07/10 Dextrose/Water 100 ML IV 07/10 1144 1030 Melatonin 5 MG AT BEDTIME 07/09 2200 AC PO Multivitamins 1 TAB DAILY 07/09 1010 AC 07/10 PO 1017 Nicotine 14 MG DAILY 07/06 1000 AC 07/10 TOP 1017 Olanzapine 2.5 MG ONCE ONE 07/10 1845 DC 07/10 PO 07/10 1846 1851 Olanzapine 2.5 MG DAILY NEEDED PRN 07/09 1430 AC 07/09 PO 1600 Phosphate 250 MG ONCE ONE 07/11 729 DC 07/11 PO 07/11 730 0838 Thiamine HCl 100 MG DAILY 07/05 1811 AC 07/10 PO 07/12 0000 1017 Trazodone HCl 50 MG AT BEDTIME 07/10 2200 DC PO Trazodone HCl 50 MG AT BEDTIME PRN 07/10 1900 AC PO Trazodone HCl 50 MG ONCE ONE 07/10 1844 DC 07/10 PO 07/10 1846 1850 Trimethobenzamide HCl 200 MG Q6-PRN PRN 07/09 2044 AC IM Vital Signs & I&O Last 24 Hrs of Vitals and I&O: Vital Signs Date Time Temp Pulse Resp B/P Pulse O2 O2 Flow FiO2 Ox Delivery Rate 07/11 0600 83 22 98/71 07/11 0400 98.0 76 18 123/70 07/11 0400 100 Room Air 07/11 0200 93 18 93/58 07/11 0000 98.7 96 18 110/70 07/11 0000 100 Room Air 07/11 0000 98.7 96 18 110/70 100 Room Air 07/10 2200 78 20 134/65 07/10 2000 97.8 76 19 139/71 07/10 1800 76 20 120/72 07/10 1600 95 Room Air 07/10 1600 98.0 68 18 122/80 95 Room Air 07/10 1417 70 16 111/59 07/10 1251 98.1 70 22 101/65 07/10 1251 98 Room Air Intake & Output 07/11 1600 07/11 0800 07/11 0000 Intake Total 1080 1000 Output Total 400 500 Balance 680 500 Intake, IV 880 520 Intake, Oral 200 480 Output, Urine 400 500 Exam Other Physical Findings: gen awake on ativan heent ncat cvs s1, s2 lungs ctab abd soft bs+ ext no edema Results Last 24 Hrs of Lab Results: Laboratory Tests 07/11/16 0400: Anion Gap 14, Estimated GFR > 60, Glucose 99, Calcium 9.7, Phosphorus 3.9, Magnesium 1.7, Total Bilirubin 0.7, AST 32, ALT 21, Albumin 4.4, CBC w Diff NO MAN DIFF REQ, RBC 3.86 L, MCV 99.6 H, MCH 33.1 H, RDW 13.9, MPV 8.1, Gran % 67.8, Lymphocytes % 23.8, Monocytes % 5.9, Eosinophils % 2.1, Basophils % 0.4, Absolute Granulocytes 7.5 H, Absolute Lymphocytes 2.6, Absolute Monocytes 0.7 H, Absolute Eosinophils 0.2, Absolute Basophils 0, PUBS MCHC 33.2 Impression/Plan Impression/Plan Impression/Plan: Impression 35-year-old woman with alcohol dependence and history of withdrawal seizures, anxiety, bipolar, depression, hepatitis C and asthma. Upgraded to the ICU for Ativan drip given significant alcohol withdrawal. Plan - Ativan drip to CIWA protocol - Librium 50 mg by mouth every 6 - Monitor and replete electrolytes as needed - Thiamine, folic acid, multivitamins PO - Psychiatry input - remove burgess - add on ck DVT prophylaxis at all times TTS 35 minutes
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
--- NOTE | 2016-07-11 12:45 | PN- Psychiatry ---
Assessment/Plan Impression: The patient is delirious today, most likely due to a late-developing acute alcohol withdrawal syndrome. She would benefit from haloperidol to control her delirium, and a continuation of lorazepam. There is also a possibility of javi present, but haloperidol should control this adequately for now. We will monitor daily, and will consider recommending an anti manic agent when the current delirium resolves. Suggestion: [This plan is a late entry, due to unavailability of [employer] this afternoon. Plan was discussed with the medical team, however.] 1. ETOH Detox protocol, including daily thiamine, folate, and MVI. 2. Haloperidol 1 mg PO every 6 hours, scheduled, for management of hallucinaosis /DTs. Hold if arrhythmia or if QTc greater than 475 mS. Current EKG shows QTc 473 mS. Hold for oversedation. 3. Haloperidol 1 mg PO, if possible, IM if unable to take PO, every 8 hours, as needed, for violent or severe agitation. Hold if arrhythmia or if QTc greater than 475 mS. Hold for oversedation. 4. Continue 1:1 sitter, as needed, to ensure patient safety. the patient is not to leave the hospital AMA, or otherwise while delirious, and not without clearance from psychiatry. We will continue to follow along with you, Julius Cobian APRN, Pager [phone] Subjective Subjective: The patient was seen briefly today, 07/11/16, in ICU room 104. The 1:1 sitter is present. The patient is alert, in two point soft wrist restraints, is calm, and requesting that this underwriter, "get my bag, which I just left upstairs." The patient is not oriented, and is delirious. Objective Last 24 Hrs of Vital Signs/I&O Laboratory Tests 07/11 0400 Chemistry Sodium (137 - 145 mmol/L) 136 L Potassium (3.5 - 5.1 mmol/L) 4.1 Chloride (98 - 107 mmol/L) 96 L Carbon Dioxide (22 - 30 mmol/L) 26 Anion Gap (5 - 16) 14 BUN (7 - 17 mg/dL) 16 Creatinine (0.5 - 1.0 mg/dL) 0.8 Estimated GFR (>60 ml/min) > 60 Glucose (65 - 99 mg/dL) 99 Calcium (8.4 - 10.2 mg/dL) 9.7 Phosphorus (2.5 - 4.5 mg/dL) 3.9 Magnesium (1.6 - 2.3 mg/dL) 1.7 Total Bilirubin (0.2 - 1.3 mg/dL) 0.7 AST (14 - 36 U/L) 32 ALT (9 - 52 U/L) 21 Creatine Kinase (30 - 135 U/L) 562 H Albumin (3.5 - 5.0 g/dL) 4.4 Hematology CBC w Diff NO MAN DIFF REQ WBC (4.8 - 10.8 /CUMM) 11.1 H RBC (4.20 - 5.40 /CUMM) 3.86 L Hgb (12.0 - 16.0 G/DL) 12.8 Hct (37 - 47 %) 38.5 MCV (81.0 - 99.0 FL) 99.6 H MCH (27.0 - 31.0 PG) 33.1 H RDW (11.5 - 14.5 %) 13.9 Plt Count (130 - 400 /CUMM) 277 MPV (7.4 - 10.4 FL) 8.1 Gran % (42.2 - 75.2 %) 67.8 Lymphocytes % (20.5 - 51.1 %) 23.8 Monocytes % (1.7 - 9.3 %) 5.9 Eosinophils % (0 - 5 %) 2.1 Basophils % (0.0 - 2.0 %) 0.4 Absolute Granulocytes (1.4 - 6.5 /CUMM) 7.5 H Absolute Lymphocytes (1.2 - 3.4 /CUMM) 2.6 Absolute Monocytes (0.10 - 0.60 /CUMM) 0.7 H Absolute Eosinophils (0.0 - 0.7 /CUMM) 0.2 Absolute Basophils (0.0 - 0.2 /CUMM) 0 PUBS MCHC (33.0 - 37.0 G/DL) 33.2 Vital Signs Date Time Temp Pulse Resp B/P Pulse O2 O2 Flow FiO2 Ox Delivery Rate 07/11 1000 90 22 90/60 07/11 0900 98 22 07/11 0800 80 22 100/80 07/11 0800 98 Room Air 07/11 0600 83 22 98/71 07/11 0400 98.0 76 18 123/70 07/11 0400 100 Room Air 07/11 0200 93 18 93/58 07/11 0000 98.7 96 18 110/70 07/11 0000 100 Room Air 07/11 0000 98.7 96 18 110/70 100 Room Air 07/10 2200 78 20 134/65 07/10 2000 97.8 76 19 139/71 07/10 1800 76 20 120/72 07/10 1600 95 Room Air 07/10 1600 98.0 68 18 122/80 95 Room Air 07/10 1417 70 16 111/59 07/10 1251 98.1 70 22 101/65 07/10 1251 98 Room Air Intake & Output 07/11 1600 07/11 0800 07/11 0000 Intake Total 1080 1000 Output Total 400 500 Balance 680 500 Intake, IV 880 520 Intake, Oral 200 480 Output, Urine 400 500 Intake, IV 880 520 Intake, Oral 200 480 Output, Urine 400 500
--- NOTE | 2016-07-11 13:53 | PN- Resident CRCU ---
Impression/Plan Impression/Problem List Impression: Patient is a 35-YO F with PMH of alcohol abuse, prior alcohol which all seizures , previous ICU admission for alcohol detoxification and put in medically induced , anxiety, bipolar disorder, depression on Wellbutrin, PID, hepatitis C, asthma, opiate dependence on naltrexone, initially admitted on the general medicine floor for alcohol detoxification, started withdrawing with very high CIWA 3 days after admission with her last drink on 07/05/2016, transfers to ICU secondary to increase need of Ativan and Ativan drip along with close monitoring. Today she is doing much better than the time she came in and currently still delirious. On ativan drip. Alcohol detoxification * Continue Ativan taper as per CIWA protocol. * Librium 50 mg by mouth every 6 hourly. * Continue thiamine, folic acid, multivitamin by mouth. * Continue regular diet per oral. * Psychiatric consult appreciated. Depression * On welbutrin XL 150mg at home. * currently continuing the medication, in light of her seizures it would better be stopped. opiate abuse * Asking for vivitrol injection tomorrow. * will consider as per her clinical situation tomorrow. Hypomagnesemia and hyperphaphatemia * Today morning her Mag of 1.8, Phos of 4.4 (normal) * Repleted mag, will monitor BEP daily Agitation/agressive behavior * zyprexa 2.5 prn if needed * Monitoring for QTc prolongation - today it is 490. DVT PX : * Lovenox Code status * Full Code Diet - Regular diet. Plan DVT/Prophylaxis: pharmacological, SC lovenox
--- NOTE | 2016-07-11 13:55 | NUR ---
Concurrent clinical review provided to CT P and 2 additional units received with review due on 07/13/16. Psychiatric note appreciated and shared with CT P. Follow.
--- NOTE | 2016-07-11 18:22 | NUR ---
VS REMAIN STABLE. PT CONTINUED ON LIBRIUM AND HALDOL 1MG PO AND ATIVAN GTT AT 12MG/HR. AT THIS TIME PT IS STILL EXPRESSING HALLUCINATIONS AND DELUSIONS, CONFUSED THOUGH OFTEN REORIENTED. SHE CONTINUES TO GRAB AT STAFF ON OCCASION. SHE IS ABLE TO FOLLOW SIMPLE DIRECTIONS TO USE BED PARKER AND EAT DINNER.
--- NOTE | 2016-07-11 20:06 | NUR ---
PT ALERT, CONFUSED, DISORIENTED TO TIME AND PLACE, HALLUNICATING, CALLING OUT. 4 POINT HARD RESTRAINTS ON. 1:1 SITTER AT BEDSIDE. ATIVAN GTT AT 12MG/HR. ON CIWA SCALE. BREATH SOUNDS CLEAR WITH DIMINISHED BREATH SOUNDS AT BASES BILATERALLY. NO COUGH, SOB OR RESP DISTRESS NOTED AT PRESENT. SEE FLOW SHEET FOR VS, 02 SATS, I/O'S. MONITOR SHOWS NSR, NO ECTOPY NOTED AT PRESENT. BP STABLE AT PRESENT. ABD SOFT, NONTENDER, NONDISTENDED, POSITIVE BOWEL SOUNDS. SKIN INTACT
[2016-07-12] VITALS (14 sets, daily range): BP systolic 89–110; BP diastolic 55–80
--- NOTE | 2016-07-12 07:23 | PN- Resident CRCU ---
Subjective HPI/CRCU Issues: 1. Alcohol withdrawl/Alcohol use disorder 2. Substance induced mood disorder 3. ADHD 24 Hour Events: I saw and examined the patient today morning. she is calm and lying on the bed for most of the day. She is alert and oriented X3. Much better compared to yesterday. Still on 4 point hard restraints as unsure of behavioural fluctuation. Objective Vital Signs & I&O Last 8 Hrs of Vitals and I&O: Intake & Output 07/12 0800 Intake Total 955 Output Total 450 Balance 505 Intake, IV 835 Intake, Oral 120 Number 0 Bowel Movements Output, Urine 450 VS Afebrile HR in NSR 70-90 BP 90-105/60-70mmHg. SAS of 3-4 I/O - 4399/2100 Exam General Appearance: alert, awake, comfortable Head: atraumatic, normal appearance Ears, Nose, Throat: normal pharynx, normal ENT inspection, hearing grossly normal Neck: normal inspection, supple Respiratory: normal breath sounds, chest non-tender, no respiratory distress Cardiovascular: regular rate/rhythm, normal peripheral pulses Gastrointestinal: normal bowel sounds, soft, non-tender Extremities: normal inspection, normal capillary refill Cranial Nerves: normal hearing, normal speech, PERRL Skin: intact IV Drips IV Drips: Lorazepam @10mcg/hr Nutrition Nutrition: P.O. diet Current Medications: Current Medications Sig/Bruna Start time Last Medication Dose Route Stop Time Status Admin Acetaminophen 650 MG Q6P PRN 07/05 2315 AC 07/10 PO 0154 Chlordiazepoxide HCl 50 MG Q6 07/10 1200 AC 07/12 PO 0521 Docusate Sodium 100 MG DAILY NEEDED PRN 07/11 0915 AC 07/11 PO 0924 Enoxaparin Sodium 40 MG DAILY 07/06 1000 AC 07/11 SC 0924 Folic Acid 1 MG DAILY 07/05 1811 DC 07/11 PO 07/12 0000 0924 Haloperidol 1 MG ONCE ONE 07/11 1215 DC 07/11 IM 07/11 1216 1214 Haloperidol 1 MG Q6 07/11 1200 AC 07/12 PO 0521 Haloperidol 1 MG Q8 PRN 07/11 1015 AC PO Haloperidol 1 MG Q6 PRN 07/11 1000 DC PO 07/11 1159 Ibuprofen 600 MG Q6P PRN 07/05 2315 AC 07/12 PO 0521 Lorazepam 100 MG Q10H 07/10 2200 AC 07/12 Dextrose/Water 1,000 ML IV 0256 Lorazepam 0 Q1P PRN 07/09 0915 AC 07/09 IV 1400 Magnesium Chloride 64 MG DAILY 07/08 1158 AC 07/11 PO 0924 Melatonin 5 MG AT BEDTIME 07/09 2200 AC 07/11 PO 2323 Multivitamins 1 TAB DAILY 07/09 1010 AC 07/11 PO 0924 Nicotine 14 MG DAILY 07/06 1000 AC 07/11 TOP 0924 Olanzapine 2.5 MG DAILY NEEDED PRN 07/09 1430 DC 07/09 PO 1600 Senna 187 MG .STK-MED ONE 07/11 0917 DC PO 07/11 0918 Senna/Docusate Sodium 1 TAB BID 07/11 1000 AC 07/11 PO 2323 Thiamine HCl 100 MG DAILY 07/05 1811 DC 07/11 PO 07/12 0000 0924 Trazodone HCl 50 MG AT BEDTIME PRN 07/10 1900 AC PO Trimethobenzamide HCl 200 MG Q6-PRN PRN 07/09 2045 AC IM Antibiotics Antibiotics? none Impression/Plan Impression/Problem List Impression: Patient is a 35-YO F with PMH of alcohol abuse, prior alcohol which all seizures , previous ICU admission for alcohol detoxification and put in medically induced , anxiety, bipolar disorder, depression on Wellbutrin, PID, hepatitis C, asthma, opiate dependence on naltrexone, initially admitted on the general medicine floor for alcohol detoxification, started withdrawing with very high CIWA 3 days after admission with her last drink on 07/05/2016, transfers to ICU secondary to increase need of Ativan and Ativan drip along with close monitoring. She is calm and much better today. Alcohol detoxification * On ativan drip @10mcg/hr now. * Librium 50 mg by mouth every 6 hourly. * Haldol 0.5mg Q6 and 0.5mg Q8PRN for agitation. * Continue thiamine, folic acid, multivitamin by mouth. * Psychiatric consult appreciated. Depression * On welbutrin XL 150mg at home - Discontined in light of Seizures. opiate abuse * Not giving any opiates for 7-10 days, including vivitrol. Persistent Hypomagnesemia * Today morning her Mag of 1.5 * Repleted mag, will monitor BEP daily. * Scheduled doses are indicated. Agitation/agressive behavior * On haldol Q6 0.5mg scheduled and 0.5mg Q8 PRN. * Monitoring for QTc prolongation - today it is 453 DVT PX : * SC Lovenox Code status * Full Code Diet - Regular diet. Problem List: 1. Alcohol abuse 2. Alcohol intoxication 3. Hypomagnesemia Pain Ratin Tomorrow's Labs & Rationales: ICU bundle cbc Plan DVT/Prophylaxis: pharmacological, SC lovenox
--- NOTE | 2016-07-12 07:46 | NUR ---
PT SLEPT MOST OF NIGHT. CIWA-0-6 OVERNIGHT. SINCE 2329 PT MORE ORIENTED, NO LONGER HALLUNICATING. ATIVAN GTT TITRATED DOWN TO 10MG/HR. 1:1 SITTER REMAINS AT BEDSIDE. BREATH SOUNDS CLEAR THOUGHOUT SHIFT. MONITOR SHOWS NSR-60-80'S, NO ECTOPY NOTED THOUGHOUT SHIFT. BP-90-100'S FOR SHIFT. VOIDING CLEAR YELLOW ON BEDPA. SKIN INTACT. C/O SHOULDER AND BACK PAIN-SEE EMAR FOR PAIN MED ADMINISTRATION
--- NOTE | 2016-07-12 10:44 | PN- Psychiatry ---
Assessment/Plan Impression: Lorazepam drip running at 9 mg/hour at 1000. Haloperidol/Haldol 1 mg PO q 6 hours; and has received 4 doses Haloperidol/Haldol 1 mg PO/IM q 8 hours PRN ordered, but has not required any from this order Trazodone 50 mg PO at bedtime Librium 50 mg PO q 6 hours CIWA as of 1000: 6-4-0-9-4-9-28-84-47-2-1-55-15-18 VS 1000: 96/65, 65, 97.1, 14RR; SpO2 98 on RA at 0400 As delirium resolves, we hope to taper scheduled Haldol to off. If the patient awakens, and no delirium, you may just stop the scheduled Haldol. We suggest keeping the Haldol PRN available. Suggestion: 1. ETOH Detox protocol, including daily thiamine, folate, and MVI. a. Please restart daily thiamine 100 mg, folate 1 mg 2. Please D/C Haloperidol 1 mg PO every 6 hours, scheduled 3. Please start Haloperidol 0.5 mg PO every 6 hours, scheduled, for management of hallucinosis/DTs. Hold if arrhythmia or if QTc greater than 475 mS. Current EKG shows QTc 473 mS. Hold for oversedation. 4. Continue Haloperidol 1 mg PO, if possible, IM if unable to take PO, every 8 hours, as needed, for violent or severe agitation. Hold if arrhythmia or if QTc greater than 475 mS. Hold for oversedation. 5. Continue 1:1 sitter, as needed, to ensure patient safety. the patient is not to leave the hospital AMA, or otherwise while delirious, and not without clearance from psychiatry. 6. SW is following the patient. We will continue to follow along with you, Julius Cobian APRN, Pager [phone] Subjective Subjective: The patient is asleep, and in 4 point hard restraints, and in no apparent distress. She was not interviewed today, but staff report she had stated earlier today that she was feeling better. Objective Last 24 Hrs of Vital Signs/I&O Current Medications Sig/Bruna Start time Last Medication Dose Route Stop Time Status Admin Acetaminophen 650 MG Q6P PRN 07/05 2315 AC 07/10 PO 0154 Chlordiazepoxide HCl 50 MG Q6 07/10 1200 AC 01/11 PO 0521 Docusate Sodium 100 MG DAILY NEEDED PRN 07/11 0915 AC 07/11 PO 0924 Enoxaparin Sodium 40 MG DAILY 07/06 1000 AC 07/12 SC 0922 Folic Acid 1 MG DAILY 07/05 1811 DC 07/11 PO 07/12 0000 0924 Haloperidol 0.5 MG Q6 07/12 1200 AC PO Haloperidol 1 MG ONCE ONE 07/11 1215 DC 07/11 IM 07/11 1216 1214 Haloperidol 1 MG Q6 07/11 1200 DC 07/12 PO 0521 Haloperidol 1 MG Q8 PRN 07/11 1015 AC PO Haloperidol 1 MG Q6 PRN 07/11 1000 DC PO 07/11 1159 Ibuprofen 600 MG Q6P PRN 07/05 2315 AC 07/12 PO 0521 Lorazepam 100 MG Q10H 07/10 2200 AC 07/12 Dextrose/Water 1,000 ML IV 0256 Lorazepam 0 Q1P PRN 07/09 0915 AC 07/09 IV 1400 Magnesium Chloride 64 MG DAILY 07/08 1158 AC 07/12 PO 0922 Melatonin 5 MG AT BEDTIME 07/09 2200 AC 07/11 PO 2323 Multivitamins 1 TAB DAILY 07/09 1010 AC 07/12 PO 0921 Nicotine 14 MG DAILY 07/06 1000 AC 07/12 TOP 0922 Senna/Docusate Sodium 1 TAB BID 07/11 1000 AC 07/12 PO 0921 Thiamine HCl 100 MG DAILY 07/05 1811 DC 07/11 PO 07/12 0000 0924 Trazodone HCl 50 MG AT BEDTIME PRN 07/10 1900 AC PO Trimethobenzamide HCl 200 MG Q6-PRN PRN 07/09 2045 AC IM Vital Signs Date Time Temp Pulse Resp B/P Pulse O2 O2 Flow FiO2 Ox Delivery Rate 07/12 1000 97.1 65 14 96/65 07/12 0800 97.1 73 22 110/80 07/12 08 97 Room Air Room Air 07/12 08 97.1 73 18 110/80 97 Room Air Room Air 07/12 0600 67 16 105/65 07/12 0400 65 14 89/66 07/12 0400 98 Room Air Room Air 07/12 0200 73 21 93/58 07/12 0000 96.4 83 18 96/59 07/12 0000 99 Room Air Room Air 07/11 2300 96.4 83 18 102/68 99 Room Air Room Air 07/11 2200 85 10 94/62 07/11 2000 96.7 73 14 90/60 07/11 2000 99 Room Air Room Air 07/11 1800 98.0 88 14 96/64 07/11 1600 97.9 74 19 91/56 07/11 1600 97 Room Air 07/11 1600 97.9 74 19 91/56 99 Room Air 07/11 1400 98.6 80 18 94/54 07/11 1200 98.6 96 17 97/60 07/11 1200 95 Room Air Intake & Output 07/12 1600 07/12 0800 07/12 0000 Intake Total 955 3444 Output Total 450 1650 Balance 505 1794 Intake, IV 835 2724 Intake, Oral 120 720 Number 0 0 Bowel Movements Output, Urine 450 1650
[2016-07-12 11:25] LABS: ABSOLUTE BASOPHIL COUNT 0.1 /CUMM (0.0-0.2); ABSOLUTE EOSINOPHIL COUNT 0.4 /CUMM (0.0-0.7); ABSOLUTE GRANULOCYTE CT 3.6 /CUMM (1.4-6.5); ABSOLUTE LYMPH COUNT 2.2 /CUMM (1.2-3.4); ABSOLUTE MONOCYTE COUNT 0.5 /CUMM (0.10-0.60); BASOPHIL % 0.8 % (0.0-2.0); EOSINOPHIL % 5.6 % (0-5); GRANULOCYTE % 52.7 % (42.2-75.2); HEMATOCRIT 40.7 % (37-47); MEAN CORPUSCULAR HGB 33.1 PG (27.0-31.0); MEAN CORPUSCULAR HGB CONC 33.4 G/DL (33.0-37.0); MEAN CORPUSCULAR VOLUME 99.2 FL (81.0-99.0); MEAN PLATELET VOLUME 8.1 FL (7.4-10.4); PLATELET COUNT 250 /CUMM (130-400); RBC DISTRIBUTION WIDTH 14.7 % (11.5-14.5); RED BLOOD CELL CT 4.11 /CUMM (4.20-5.40); WHITE BLOOD CELL COUNT 6.8 /CUMM (4.8-10.8)
--- NOTE | 2016-07-12 12:02 | PN- CRCU ---
Subjective HPI/Critical Care Issues: Patient seen and examined this morning. She is in Ativan 9 per hour. Haldol will be reduced. She is somnolent this morning and comfortable. No new events. Objective Current Medications: Current Medications Sig/Bruna Start time Last Medication Dose Route Stop Time Status Admin Acetaminophen 650 MG Q6P PRN 07/05 2315 AC 07/10 PO 0154 Chlordiazepoxide HCl 50 MG Q6 07/10 1200 AC 07/12 PO 1200 Docusate Sodium 100 MG DAILY NEEDED PRN 07/11 0915 AC 07/11 PO 0924 Enoxaparin Sodium 40 MG DAILY 07/06 1000 AC 07/12 SC 0922 Folic Acid 1 MG DAILY 07/12 1032 AC 07/12 PO 1155 Folic Acid 1 MG DAILY 07/05 1811 DC 07/11 PO 07/12 0000 0924 Haloperidol 0.5 MG Q6 07/12 1200 AC 07/12 PO 1155 Haloperidol 1 MG ONCE ONE 07/11 1215 DC 07/11 IM 07/11 1216 1214 Haloperidol 1 MG Q6 07/11 1200 DC 07/12 PO 0521 Haloperidol 1 MG Q8 PRN 07/11 1015 AC PO Ibuprofen 600 MG Q6P PRN 07/05 2315 AC 07/12 PO 0521 Lorazepam 100 MG Q11H 07/12 1100 AC Dextrose/Water 1,000 ML IV Lorazepam 100 MG Q10H 07/10 2200 DC 07/12 Dextrose/Water 1,000 ML IV 0256 Lorazepam 0 Q1P PRN 07/09 0915 AC 07/09 IV 1400 Magnesium Chloride 64 MG DAILY 07/08 1158 AC 07/12 PO 0922 Melatonin 5 MG AT BEDTIME 07/09 2200 AC 07/11 PO 2323 Multivitamins 1 TAB DAILY 07/09 1010 AC 07/12 PO 0921 Nicotine 14 MG DAILY 07/06 1000 AC 07/12 TOP 0922 Senna/Docusate Sodium 1 TAB BID 07/11 1000 AC 07/12 PO 0921 Thiamine HCl 100 MG DAILY 07/12 1032 AC 07/12 PO 1155 Thiamine HCl 100 MG DAILY 07/05 1811 DC 07/11 PO 07/12 0000 0924 Trazodone HCl 50 MG AT BEDTIME PRN 07/10 1900 AC PO Trimethobenzamide HCl 200 MG Q6-PRN PRN 07/09 2045 AC IM Vital Signs & I&O Last 24 Hrs of Vitals and I&O: Vital Signs Date Time Temp Pulse Resp B/P Pulse O2 O2 Flow FiO2 Ox Delivery Rate 07/12 1000 97.1 65 14 96/65 07/12 0800 97.1 73 22 110/80 07/12 0800 97 Room Air Room Air 07/12 0800 97.1 73 18 110/80 97 Room Air Room Air 07/12 0600 67 16 105/65 07/12 0400 65 14 89/66 07/12 0400 98 Room Air Room Air 07/12 0200 73 21 93/58 07/12 0000 96.4 83 18 96/59 07/12 0000 99 Room Air Room Air 07/11 2300 96.4 83 18 102/68 99 Room Air Room Air 07/11 2200 85 10 94/62 07/11 2000 96.7 73 14 90/60 07/11 2000 99 Room Air Room Air 07/11 1800 98.0 88 14 96/64 07/11 1600 97.9 74 19 91/56 07/11 1600 97 Room Air 07/11 1600 97.9 74 19 91/56 99 Room Air 07/11 1400 98.6 80 18 94/54 Intake & Output 07/12 1600 07/12 0800 07/12 0000 Intake Total 955 3444 Output Total 450 1650 Balance 505 1794 Intake, IV 835 2724 Intake, Oral 120 720 Number 0 0 Bowel Movements Output, Urine 450 1650 Exam Other Physical Findings: gen awake on ativan heent ncat cvs s1, s2 lungs ctab abd soft bs+ ext no edema Results Last 24 Hrs of Lab Results: Laboratory Tests 07/12/16 1050: Anion Gap 16, Estimated GFR > 60, Glucose 99, Calcium 9.8, Phosphorus 5.1 H, Magnesium 1.5 L, Total Bilirubin 0.5, AST 30, ALT 23, Creatine Kinase 408 H, Albumin 4.2, CBC w Diff NO MAN DIFF REQ, RBC 4.11 L, MCV 99.2 H, MCH 33.1 H, RDW 14.7 H, MPV 8.1, Gran % 52.7, Lymphocytes % 33.0, Monocytes % 7.9, Eosinophils % 5.6 H, Basophils % 0.8, Absolute Granulocytes 3.6, Absolute Lymphocytes 2.2, Absolute Monocytes 0.5, Absolute Eosinophils 0.4, Absolute Basophils 0.1, PUBS MCHC 33.4 Impression/Plan Impression/Plan Impression/Plan: Impression 35-year-old woman with alcohol dependence and history of withdrawal seizures, anxiety, bipolar, depression, hepatitis C and asthma. Upgraded to the ICU for Ativan drip given significant alcohol withdrawal. Plan - Ativan drip to [facility] protocol - Librium 50 mg by mouth every 6 - Monitor and replete electrolytes as needed - Thiamine, folic acid, multivitamins PO - Psychiatry input appreciated - Reduce Haldol per psychiatry DVT prophylaxis at all times TTS 35 minutes
--- NOTE | 2016-07-12 19:25 | NUR ---
PATIENT'S FRIEND DYANA VISITING AND AT THE BEDSIDE. PATIENT TOLERATED THE VISIT WELL. FAMILY AND PATIENT RE-EDUCATED ON PATIENT'S CONDITION. PATIENT IS MORE REORIENTABLE/FOLLOWING DIRECTIONS BETTER TODAY. SHE IS INTERMITTENTLY CALM/SLEEPING BUT STILL HAVING OCCASIONAL OUTBURSTS YELLING/CRYING. SHE IS CONFUSED TO TIME/HAVING DELUSIONS AND BEING ACCUSATORY. SITTER AT THE BEDSIDE THROUGHOUT THE DAY MAINTAINING SAFETY. ATIVAN GTT TITRATED PER EMAR/ICU FLOW SHEET. STARTED SHIFT AT 10 MG/HR AND ENDED SHIFT AT 7MG/HR. FOUR POINT BEHAVIORAL RESTRAINTS RENEWED Q4 HOURS. NSR ON THE MONITOR 70S W/ SBP 90S. ON ROOM AIR 97% NO DISTRESS/COMPLAINTS. PATIENT WANTING TO MOVE HER BOWELS BUT NOT WANTING TO USE THE BEDPAN. SENNA GIVEN THIS AM. SAFETY MAINTAINED. REPORT GIVEN TO BAO SCHNEIDER.
--- NOTE | 2016-07-12 20:34 | NUR ---
PT ALERT, ORIENTED TO SELF AND PLACE, CONFUSED. ATIVAN GTT AT 7MG/HR. [address] IN [address]. 1:1 SITTER AT BEDSIDE. ON CIWA SCALE. SEE FLOW SHEET FOR SAS SCORES. BREATH SOUNDS CLEAR THOUGHOUT BILATERALLY. NO COUGH, SOB OR RESP DISTRESS NOTED AT PRESENT. SEE FLOW SHEET FOR VS, 02 SATS, I/O'S. MONITOR SHOWS NSR, NO ECTOPY NOTED AT PRESENT. BP STABLE AT PRESENT. ABD SOFT, NONTENDER, NONDISTENDED, POSITIVE BOWEL SOUNDS. VOIDING CLEAR YELLOW URINE ON BEDPAN. SKIN INTACT. PT DENIES ANY PAIN AT PRESENT
[2016-07-13] VITALS (12 sets, daily range): BP systolic 86–110; BP diastolic 56–74
--- NOTE | 2016-07-13 07:26 | PN- Resident CRCU ---
Subjective HPI/CRCU Issues: 1. Alcohol withdrawl/Alcohol use disorder 2. Substance induced mood disorder 3. ADHD 24 Hour Events: I saw and examined the patient today morning. she is much more better today, off all her restraints and on 2mcg/hr of lorazepam drip in the morning. She is off the drip by afternoon. She is very active, moving around. Objective Vital Signs & I&O Last 8 Hrs of Vitals and I&O: Intake & Output 07/13 1600 Intake Total 1030 Output Total Balance 1030 Intake, IV 70 Intake, Oral 960 VS Afebrile HR 75-95bpm BP 95-100/65-70mmHg On room air Exam General Appearance: no apparent distress, alert, awake, comfortable Head: atraumatic, normal appearance Ears, Nose, Throat: normal pharynx, normal ENT inspection, hearing grossly normal Neck: normal inspection, supple Respiratory: normal breath sounds, chest non-tender, no respiratory distress Cardiovascular: regular rate/rhythm, normal peripheral pulses Gastrointestinal: normal bowel sounds, soft, non-tender Extremities: normal inspection, normal capillary refill, normal range of motion Cranial Nerves: normal hearing, normal speech, PERRL Skin: intact IV Drips IV Drips: On lorazepam drip through out the night. Today morning @2mcg/hr. OFF since afternoon. Nutrition Nutrition: P.O. diet Current Medications: Current Medications Sig/Bruna Start time Last Medication Dose Route Stop Time Status Admin Acetaminophen 650 MG Q6P PRN 07/05 2315 AC 07/10 PO 0154 Chlordiazepoxide HCl 50 MG Q6 07/10 1200 AC 07/13 PO 1641 Docusate Sodium 100 MG DAILY NEEDED PRN 07/11 0915 AC 07/11 PO 0924 Enoxaparin Sodium 40 MG DAILY 07/06 1000 AC 07/13 SC 0931 Folic Acid 1 MG DAILY 07/12 1032 AC 07/13 PO 0930 Haloperidol 0.5 MG Q6 07/12 1200 AC 07/13 PO 1641 Haloperidol 1 MG Q8 PRN 07/11 1015 AC PO Ibuprofen 600 MG .STK-MED ONE 07/13 0927 DC PO 07/13 0928 Ibuprofen 600 MG Q6P PRN 07/05 2315 AC 07/13 PO 0931 Lorazepam 100 MG Q11H 07/12 1100 DC 01/12 Dextrose/Water 1,000 ML IV 0645 Lorazepam 0 Q1P PRN 07/09 0915 AC 07/13 IV 1805 Magnesium Chloride 64 MG DAILY 07/08 1158 AC 07/13 PO 0930 Magnesium Oxide 400 MG BID 07/12 1417 DC 07/12 PO 07/13 0000 2314 Melatonin 5 MG AT BEDTIME 07/09 2200 AC 07/12 PO 2314 Multivitamins 1 TAB DAILY 07/09 1010 AC 07/13 PO 0930 Nicotine 14 MG DAILY 07/06 1000 AC 07/13 TOP 0930 Senna/Docusate Sodium 1 TAB BID 07/11 1000 AC 07/12 PO 2314 Thiamine HCl 100 MG DAILY 07/12 1032 AC 07/13 PO 0931 Trazodone HCl 50 MG AT BEDTIME PRN 07/10 1900 AC 07/12 PO 2328 Trimethobenzamide HCl 200 MG Q6-PRN PRN 07/09 2045 AC IM Impression/Plan Impression/Problem List Impression: Patient is a 35-YO F with PMH of alcohol abuse, prior alcohol which all seizures , previous ICU admission for alcohol detoxification and put in medically induced , anxiety, bipolar disorder, depression on Wellbutrin, PID, hepatitis C, asthma, opiate dependence on naltrexone, initially admitted on the general medicine floor for alcohol detoxification, started withdrawing with very high CIWA 3 days after admission with her last drink on 07/05/2016, transfers to ICU secondary to increase need of Ativan and Ativan drip along with close monitoring. She is calm and much better today. Alcohol detoxification * OFF ativan drip from afternoon. * Librium 50 mg by mouth every 6 hourly. * Haldol 0.5mg Q6 and 0.5mg Q8PRN for agitation. * Continue thiamine, folic acid, multivitamin by mouth. * Psychiatric consult appreciated. Depression * On welbutrin XL 150mg at home - Discontined in light of Seizures. opiate abuse * Not giving any opiates for 7-10 days, including vivitrol. Persistent Hypomagnesemia * Today morning her Mag of 1.6 * Repleted mag, will monitor BEP daily. * Scheduled doses are indicated. Agitation/agressive behavior * On haldol Q6 0.5mg scheduled and 0.5mg Q8 PRN. * Monitoring for QTc prolongation DVT PX : * SC Lovenox Code status * Full Code Diet - Regular diet. Problem List: 1. Alcohol abuse 2. Alcohol intoxication 3. Hypomagnesemia Pain Ratin Tomorrow's Labs & Rationales: ICU bundle CBC Plan DVT/Prophylaxis: pharmacological, SC lovenox
--- NOTE | 2016-07-13 07:38 | NUR ---
PT SLEPT ENTIRE NIGHT UNTIL WOKEN UP AT 0530 FOR AM CARE. ATIVAN GTT TITRATED DOWN TO 2MG/HR, CIWA-0-2 FOR SHIFT, SAS-3-4. PT ORIENTED TO SELF AND PLACE, WHEN WAKES UP CAN BE DISORIENTED TO TIME OF DAY. PT COOPERATIVE WITH CARE, NO LONGER AGGRESSIVE, AGITATED OR VIOLENT. DISCONTINUED 4 PT HARD RESTRAINTS AT 0600-BILATERAL SOFT WRIST RESTRAINTS APPLIED. BREATH SOUNDS REMAIN CLEAR. MONITOR NSR, NO ECTOPY NOTED THOUGHOUT SHIFT. BP 90-100'S. PT OOB TO COMMODE WITH ASSIST OF 1-PT HAD NOT HAD BM IN 6 DAYS-PT HAD LARGE BM ON COMMODE. VOIDING CLEAR YELLOW URINE ON BEDPAN. SKIN INTACT. DENIED ANY PAIN THOUGHOUT SHIFT
--- NOTE | 2016-07-13 09:08 | PN- CRCU ---
Subjective HPI/Critical Care Issues: pt seen and examined ativan reduced to 2mg/hr hemodynamically stable no new events Objective Current Medications: Current Medications Sig/Bruna Start time Last Medication Dose Route Stop Time Status Admin Acetaminophen 650 MG Q6P PRN 07/05 2315 AC 07/10 PO 0154 Chlordiazepoxide HCl 50 MG Q6 07/10 1200 AC 07/13 PO 0645 Docusate Sodium 100 MG DAILY NEEDED PRN 07/11 0915 AC 07/11 PO 0924 Enoxaparin Sodium 40 MG DAILY 07/06 1000 AC 07/12 SC 0922 Folic Acid 1 MG DAILY 07/12 1032 AC 07/12 PO 1155 Haloperidol 0.5 MG Q6 07/12 1200 AC 07/13 PO 0645 Haloperidol 1 MG Q6 07/11 1200 DC 07/12 PO 0521 Haloperidol 1 MG Q8 PRN 07/11 1015 AC PO Ibuprofen 600 MG Q6P PRN 07/05 2315 AC 07/12 PO 0521 Lorazepam 100 MG Q11H 07/12 1100 AC 07/13 Dextrose/Water 1,000 ML IV 0645 Lorazepam 100 MG Q10H 07/10 2200 DC 07/12 Dextrose/Water 1,000 ML IV 0256 Lorazepam 0 Q1P PRN 07/09 0915 AC 07/09 IV 1400 Magnesium Chloride 64 MG DAILY 07/08 1158 AC 07/12 PO 0922 Magnesium Oxide 400 MG BID 07/12 1417 DC 07/12 PO 07/13 0000 2314 Melatonin 5 MG AT BEDTIME 07/09 2200 AC 07/12 PO 2314 Multivitamins 1 TAB DAILY 07/09 1010 AC 07/12 PO 0921 Nicotine 14 MG DAILY 07/06 1000 AC 07/12 TOP 0922 Senna/Docusate Sodium 1 TAB BID 07/11 1000 AC 07/12 PO 2314 Thiamine HCl 100 MG DAILY 07/12 1032 AC 07/12 PO 1155 Trazodone HCl 50 MG AT BEDTIME PRN 07/10 1900 AC 07/12 PO 2328 Trimethobenzamide HCl 200 MG Q6-PRN PRN 07/09 2045 AC IM Vital Signs & I&O Last 24 Hrs of Vitals and I&O: Vital Signs Date Time Temp Pulse Resp B/P Pulse O2 O2 Flow FiO2 Ox Delivery Rate 07/13 799 99.3 78 18 102/60 01/12 0800 99.3 78 18 102/60 97 Room Air 07/13 0600 73 17 96/61 07/13 0400 73 17 86/56 07/13 0400 97 Room Air Room Air 07/13 0200 73 18 91/57 07/13 0000 98.4 76 20 110/64 07/13 0000 97 Room Air Room Air 07/12 2300 98.4 76 20 110/64 97 Room Air Room Air 07/12 2200 94 20 95/62 07/12 2000 98.3 88 18 106/66 07/12 2000 97 Room Air Room Air 07/12 1600 98.0 80 16 110/55 07/12 1600 97 Room Air Room Air 07/12 1600 98.0 80 16 110/55 97 Room Air Room Air 07/12 1400 97.1 80 17 92/56 07/12 1300 97.1 84 18 96/56 07/12 1200 97.1 76 14 98/62 07/12 1200 97 Room Air Room Air 07/12 1100 97.1 74 18 91/58 07/12 1000 97.1 65 14 96/65 Intake & Output 07/13 1600 07/13 0800 07/13 0000 Intake Total 510 981 Output Total 1100 300 Balance -590 681 Intake, IV 390 611 Intake, Oral 120 370 Number 1 0 Bowel Movements Output, Urine 1100 300 Exam Other Physical Findings: gen awake on ativan heent ncat cvs s1, s2 lungs ctab abd soft bs+ ext no edema Results Last 24 Hrs of Lab Results: Laboratory Tests 07/12/16 1050: Anion Gap 16, Estimated GFR > 60, Glucose 99, Calcium 9.8, Phosphorus 5.1 H, Magnesium 1.5 L, Total Bilirubin 0.5, AST 30, ALT 23, Creatine Kinase 408 H, Albumin 4.2, CBC w Diff NO MAN DIFF REQ, RBC 4.11 L, MCV 99.2 H, MCH 33.1 H, RDW 14.7 H, MPV 8.1, Gran % 52.7, Lymphocytes % 33.0, Monocytes % 7.9, Eosinophils % 5.6 H, Basophils % 0.8, Absolute Granulocytes 3.6, Absolute Lymphocytes 2.2, Absolute Monocytes 0.5, Absolute Eosinophils 0.4, Absolute Basophils 0.1, PUBS MCHC 33.4 Impression/Plan Impression/Plan Impression/Plan: Impression 35-year-old woman with alcohol dependence and history of withdrawal seizures, anxiety, bipolar, depression, hepatitis C and asthma. Upgraded to the ICU for Ativan drip given significant alcohol withdrawal. Plan - Ativan drip to [facility] protocol - Librium 50 mg by mouth every 6 - Monitor and replete electrolytes as needed - Thiamine, folic acid, multivitamins PO - Psychiatry input appreciated - Haldol per psychiatry DVT prophylaxis at all times TTS 35 minutes
--- NOTE | 2016-07-13 09:43 | NUR ---
0800: RECEIVED PT IN BED. A+OX3. ON RA, LUNGS CLEAR, DENIES SOB. NSR ON MONITOR. LOW GRADE FEVER 99.3 VIA TEMPORAL ARTERY. MANUAL B/P 102/60. DENIES CHEST PAIN. ABDOMEN SOFT. +BS. BM THIS MORNING. SOFT BILATERAL WRIST RESTRAINTS IN PLACE. SITTER AT BEDSIDE. PT VOIDING IN BED PARKER OR BED SIDE COMMODE. SKIN INTACT. #22 RF WITH ATIVAN GTT RUNNING AT 2MG/HR. CIWA 0. PT DENIES HEADACHE, NAUSEA, NO TREMORS NOTED. WILL MONITOR.
[2016-07-13 10:07] LABS: ABSOLUTE BASOPHIL COUNT 0 /CUMM (0.0-0.2); ABSOLUTE EOSINOPHIL COUNT 0.3 /CUMM (0.0-0.7); ABSOLUTE LYMPH COUNT 2.8 /CUMM (1.2-3.4); ABSOLUTE MONOCYTE COUNT 0.9 /CUMM (0.10-0.60); BASOPHIL % 0.4 % (0.0-2.0); GRANULOCYTE % 55.6 % (42.2-75.2); HEMATOCRIT 39.9 % (37-47); MEAN CORPUSCULAR HGB CONC 33.3 G/DL (33.0-37.0); MEAN CORPUSCULAR VOLUME 99.1 FL (81.0-99.0); MEAN PLATELET VOLUME 7.9 FL (7.4-10.4); PLATELET COUNT 302 /CUMM (130-400); RBC DISTRIBUTION WIDTH 14.1 % (11.5-14.5); RED BLOOD CELL CT 4.02 /CUMM (4.20-5.40)
--- NOTE | 2016-07-13 10:30 | NUR ---
PT CALM COOPERATIVE. SITTER AT BEDSIDE, WRIST RESTRAINTS REMOVED. ATIVAN GTT TURNED DOWN TO 1MG/HR AT THIS TIME
--- NOTE | 2016-07-13 10:38 | NUR ---
MD ENRIQUEZ AWARE OF RESTRAINT REMOVAL AND ATIVAN GTT TITRATION
--- NOTE | 2016-07-13 11:59 | NUR ---
ATIVAN GTT STOPPED, PO LIBRIUM AND HALDOL GIVEN AT THIS TIME. SITTER REMAINS AT BEDSIDE. WILL MONITOR.
--- NOTE | 2016-07-13 16:00 | PN- Psychiatry ---
Assessment/Plan Impression: Identifying Info: 35-year-old single female presents to [facility] emergency department on 07/05/2016 for alcohol withdrawal detox. Admitted for elevated to scores and seizure history. Now in critical care unit. SUBJECTIVE Patient with no complaints at this time. She reports she had previously been consuming between 1 L and 1 gallon of vodka daily. Additionally she reports that she had not been taking her Wellbutrin when drinking and has a large supply at home. Verbalizes understanding of increased seizure risk with Wellbutrin. Reports that on her previous detoxes she needed to be "put in a coma." Brief ROS Gait: Steady Sleep: Adequate Appetite: Adequate OBJECTIVE Mental Status Exam Presentation/Appearance: Calm. Cooperative with evaluation. Hospital garb. Initially when attempted to interview patient she was walking around her room naked. Sitter in place. No restraints at this time. Orientation: Alert and oriented 4 Sensorium: Awake and alert Eye contact: Appropriate Affect: Somewhat constricted Mood: Elevated Depression: Denies Anxiety: Denies Thought Content: - Denies SI/HI, AH/VH, PI. States and also believes they will not kill themselves. - Denies Hopeless/Helpless Thoughts Thought Process: Linear Speech: Normal tone and rate and prosody Judgment: Fair Insight: Fair Cognition: Memory: Grossly intact, some short-term deficits related to recent withdrawal delirium Attention/Concentration: Attends well to interview MMSE: (not completed) Per nursing report patient's Ativan drip has been discontinued at approximately 1200 today and she has been pleasant and cooperative to work with. She reports she requested in tolerated her sitter braiding her hair. Per house staff report patient has been somewhat hyperactive and there is some concern about her wandering the unit. CIWAs have been between 0 and 2 over the past 24 hours. ASSESSMENT 35-year-old single female with history of polysubstance dependence and likely mood disorder presents today with improving delirium. She remains at high risk for return of acute confusional state. Due to seizure risk Wellbutrin likely not the best medication for her and should only be restarted with extreme caution. Additionally the patient is displaying some signs and symptoms associated with javi and may benefit from a mood stabilizing agent rather than an antidepressant which may be activating for her. Differential diagnosis Alcohol use disorder, severe Alcohol withdrawal, with perceptual disturbances, resolving Opiate use disorder Phencyclidine use disorder Unspecified mood disorder versus substance induced mood disorder r/o unspecified bipolar disorder By report history of ADHD Suggestion: 1. Continue psychotropic meds as currently ordered. 2. Continue to monitor EKG. 3. Continue EtOH detox protocol including vitamin supplementation. 4. Continue sitter to ensure safety. May not leave AMA without psychiatric clearance. 5. Appreciate social work assistance with disposition and recommendations and planning. Thank you for including psychiatry in this case we'll continue to follow. Live Sampson APRN, pager [phone] Subjective Subjective: .
--- NOTE | 2016-07-13 17:31 | NUR ---
PT HAS VISITORJAMILA. PT CALM COOPERATIVE. SITTER AT BEDSIDE WILL MONITOR.
--- NOTE | 2016-07-13 18:40 | NUR ---
HIFLO TURNED DOWN TO 45% BY RT LOCKHART AT THIS TIME. WILL MONITOR.
--- NOTE | 2016-07-13 18:48 | NUR ---
1MG IV ATIVAN GIVEN AT 1800 FOR CIWA OF 8. PT GETTING ANXIOUS AT THIS TIME, AGITATED AND HAS SLIGHT TREMOR. WILL REASSESS.
[2016-07-14] VITALS (11 sets, daily range): BP systolic 90–114; BP diastolic 44–77
[2016-07-14 08:02] LABS: ABSOLUTE BASOPHIL COUNT 0.1 /CUMM (0.0-0.2); ABSOLUTE EOSINOPHIL COUNT 0.2 /CUMM (0.0-0.7); ABSOLUTE GRANULOCYTE CT 2.8 /CUMM (1.4-6.5); ABSOLUTE LYMPH COUNT 4.1 /CUMM (1.2-3.4); ABSOLUTE MONOCYTE COUNT 0.9 /CUMM (0.10-0.60); BASOPHIL % 0.7 % (0.0-2.0); GRANULOCYTE % 34.6 % (42.2-75.2); HEMATOCRIT 40.1 % (37-47); MEAN CORPUSCULAR HGB 33.3 PG (27.0-31.0); MEAN CORPUSCULAR HGB CONC 33.5 G/DL (33.0-37.0); MEAN CORPUSCULAR VOLUME 99.2 FL (81.0-99.0); MEAN PLATELET VOLUME 8.2 FL (7.4-10.4); PLATELET COUNT 285 /CUMM (130-400); RBC DISTRIBUTION WIDTH 13.8 % (11.5-14.5); RED BLOOD CELL CT 4.05 /CUMM (4.20-5.40); WHITE BLOOD CELL COUNT 8.1 /CUMM (4.8-10.8)
--- NOTE | 2016-07-14 08:06 | PN- Resident CRCU ---
Subjective HPI/CRCU Issues: 1. Alcohol withdrawl/Alcohol use disorder 2. Substance induced mood disorder 3. ADHD 24 Hour Events: I saw and examined the patient today morning. She is doing much better, OFF ativan drip since yesterday afternoon. Still in maniac mood, had many questions regarding her medications essentially Psychiatric medications. sitter at bedside and off the restraints. reports 2 episodes of loose bowel movements today. Objective Vital Signs & I&O Last 8 Hrs of Vitals and I&O: VS Afebrile HR 65-95bpm BP 105-110/60-70 mmHg On room air. Exam General Appearance: no apparent distress, alert, awake, comfortable, excited Head: atraumatic, normal appearance Ears, Nose, Throat: normal pharynx, normal ENT inspection, hearing grossly normal Neck: normal inspection, supple Respiratory: normal breath sounds, chest non-tender, no respiratory distress Cardiovascular: regular rate/rhythm, normal peripheral pulses Gastrointestinal: normal bowel sounds, soft, non-tender Extremities: normal inspection, normal capillary refill, normal range of motion Cranial Nerves: normal hearing, normal speech, PERRL Skin: intact IV Drips IV Drips: none Nutrition Nutrition: P.O. diet Current Medications: Current Medications Sig/Bruna Start time Last Medication Dose Route Stop Time Status Admin Acetaminophen 650 MG Q6P PRN 07/05 2315 AC 07/10 PO 0154 Chlordiazepoxide HCl 50 MG Q6 07/10 1200 AC 07/14 PO 1115 Diphenhydramine HCl 1 MARKELL DAILY 07/14 1000 AC 07/14 TOP 0943 Docusate Sodium 100 MG DAILY NEEDED PRN 07/11 0915 AC 07/11 PO 0924 Enoxaparin Sodium 40 MG DAILY 07/06 1000 AC 07/14 SC 0943 Folic Acid 1 MG DAILY 07/12 1032 AC 07/14 PO 0943 Haloperidol 0.5 MG Q6 07/12 1200 DC 07/13 PO 2259 Haloperidol 1 MG Q8 PRN 07/11 1015 DC PO Ibuprofen 600 MG Q6P PRN 07/05 2315 AC 07/13 PO 0931 Loperamide HCl 2 MG BID PRN 07/14 1130 UNVr PO Lorazepam 100 MG Q11H 07/12 1100 DC 07/13 Dextrose/Water 1,000 ML IV 0645 Lorazepam 0 Q1P PRN 07/09 0915 AC 07/13 IV 1805 Magnesium Chloride 64 MG DAILY 07/08 1158 07/14 PO 0942 Magnesium Oxide 400 MG BID 07/14 1000 07/14 PO 0943 Melatonin 5 MG AT BEDTIME 07/09 2200 07/13 PO 2259 Multivitamins 1 TAB DAILY 07/09 1010 07/14 PO 0943 Nicotine 14 MG DAILY 07/06 1000 07/14 TOP 0942 Senna/Docusate Sodium 1 TAB BID 07/11 1000 07/12 PO 2314 Thiamine HCl 100 MG DAILY 07/12 1032 07/14 PO 0942 Trazodone HCl 50 MG AT BEDTIME PRN 07/10 1900 07/13 PO 2259 Trimethobenzamide HCl 200 MG Q6-PRN PRN 07/09 2045 AC IM Impression/Plan Impression/Problem List Impression: Patient is a 35-YO F with PMH of alcohol abuse, prior alcohol which all seizures , previous ICU admission for alcohol detoxification and put in medically induced , anxiety, bipolar disorder, depression on Wellbutrin, PID, hepatitis C, asthma, opiate dependence on naltrexone, initially admitted on the general medicine floor for alcohol detoxification, started withdrawing with very high CIWA 3 days after admission with her last drink on 07/05/2016, transfers to ICU secondary to increase need of Ativan and Ativan drip along with close monitoring. She is calm and much better today. Alcohol detoxification. * Librium 50 mg by mouth every 8 hourly. * QTc is 493 today discontinued haldol. * Continue thiamine, folic acid, multivitamin by mouth. * Psychiatric consult appreciated. Depression * On welbutrin XL 150mg at home - Discontined in light of Seizures. opiate abuse * Not giving any opiates for 7-10 days, including vivitrol. Persistent Hypomagnesemia * Today morning her Mag of 1.7 * Repleted mag, will monitor BEP daily. * Scheduled doses are indicated. Agitation/agressive behavior * She remained quite for the past 48hr. * Discontinued haldol. * Monitoring for QTc prolongation - today 493. * Ativan as per CIWA protocol Discharge disposition * Our medical social worker (Emilie ) spoke to her regarding disposition. * She would [facility] to join [facility] after discharge. DVT PX : * SC Lovenox Code status * Full Code Diet - Regular diet. Problem List: 1. Alcohol intoxication 2. Hypomagnesemia 3. Alcohol abuse Pain Ratin Tomorrow's Labs & Rationales: ICU bundle cbc Plan DVT/Prophylaxis: pharmacological, SC lovenox
--- NOTE | 2016-07-14 08:51 | PN- CRCU ---
Subjective HPI/Critical Care Issues: pt seen and examined hemodynamically stable awake and more comfortable no n/v/d/c no cp no dyspnea Objective Current Medications: Current Medications Sig/Bruna Start time Last Medication Dose Route Stop Time Status Admin Acetaminophen 650 MG Q6P PRN 07/05 2315 AC 07/10 PO 0154 Chlordiazepoxide HCl 50 MG Q6 07/10 1200 AC 07/14 PO 0543 Diphenhydramine HCl 1 MARKELL DAILY 07/14 1000 AC TOP Docusate Sodium 100 MG DAILY NEEDED PRN 07/11 0915 AC 07/11 PO 0924 Enoxaparin Sodium 40 MG DAILY 07/06 1000 AC 07/13 SC 0931 Folic Acid 1 MG DAILY 07/12 1032 AC 07/13 PO 0930 Haloperidol 0.5 MG Q6 07/12 1200 DC 07/13 PO 2259 Haloperidol 1 MG Q8 PRN 07/11 1015 AC PO Ibuprofen 600 MG .STK-MED ONE 07/13 0927 DC PO 07/13 0928 Ibuprofen 600 MG Q6P PRN 07/05 2315 AC 07/13 PO 0931 Lorazepam 100 MG Q11H 07/12 1100 DC 07/13 Dextrose/Water 1,000 ML IV 0645 Lorazepam 0 Q1P PRN 07/09 0915 AC 07/13 IV 1805 Magnesium Chloride 64 MG DAILY 07/08 1158 AC 07/13 PO 0930 Magnesium Oxide 400 MG BID 07/14 1000 AC PO Melatonin 5 MG AT BEDTIME 07/09 2200 AC 07/13 PO 2259 Multivitamins 1 TAB DAILY 07/09 1010 AC 07/13 PO 0930 Nicotine 14 MG DAILY 07/06 1000 AC 07/13 TOP 0930 Senna/Docusate Sodium 1 TAB BID 07/11 1000 AC 07/12 PO 2314 Thiamine HCl 100 MG DAILY 07/12 1032 AC 07/13 PO 0931 Trazodone HCl 50 MG AT BEDTIME PRN 07/10 1900 AC 07/13 PO 2259 Trimethobenzamide HCl 200 MG Q6-PRN PRN 07/09 2045 AC IM Vital Signs & I&O Last 24 Hrs of Vitals and I&O: Vital Signs Date Time Temp Pulse Resp B/P Pulse O2 O2 Flow FiO2 Ox Delivery Rate 07/14 0800 98.0 64 18 112/64 07/14 0730 98.0 64 18 112/64 100 Room Air 07/14 0600 98.1 62 16 95/77 07/14 0400 98.1 62 18 108/50 07/14 0200 98.4 58 16 90/44 07/14 0000 98.4 60 16 104/66 07/14 0000 98.4 60 16 104/66 99 Room Air 07/13 2200 97.4 70 20 102/64 07/13 2000 98.4 74 16 106/74 07/13 1900 87 18 110/67 07/13 1800 80 18 110/67 07/13 1600 98.5 93 20 110/70 07/13 1600 98.5 93 20 110/70 99 Room Air 07/13 1200 98.6 87 20 100/60 07/13 1200 98.6 87 20 100/60 100 Room Air 07/13 1000 91 18 90/60 Intake & Output 07/14 1600 07/14 0800 07/14 0000 Intake Total 120 720 Output Total Balance 120 720 Intake, Oral 120 720 Exam Other Physical Findings: gen awake on ativan heent ncat cvs s1, s2 lungs ctab abd soft bs+ ext no edema Results Last 24 Hrs of Lab Results: Laboratory Tests 07/14/16 0610: Anion Gap 16, Estimated GFR > 60, Glucose 78, Calcium 10.0, Phosphorus 4.3, Magnesium 1.7, Total Bilirubin 0.6, AST 24, ALT 37, Albumin 4.5, CBC w Diff Pending, WBC Pending, RBC Pending, Hgb Pending, Hct Pending, MCV Pending, MCH Pending, RDW Pending, Plt Count Pending, MPV Pending, Gran % Pending, Lymphocytes % Pending, Monocytes % Pending, Eosinophils % Pending, Basophils % Pending, Absolute Granulocytes Pending, Absolute Lymphocytes Pending, Absolute Monocytes Pending, Absolute Eosinophils Pending, Absolute Basophils Pending, PUBS MCHC Pending 07/13/16 0905: Anion Gap 16, Estimated GFR > 60, Glucose 99, Calcium 9.7, Phosphorus 3.7, Magnesium 1.6, Total Bilirubin 0.6, AST 23, ALT 30, Albumin 4.2, CBC w Diff NO MAN DIFF REQ, RBC 4.02 L, MCV 99.1 H, MCH 33.0 H, RDW 14.1, MPV 7.9, Gran % 55.6, Lymphocytes % 31.2, Monocytes % 9.8 H, Eosinophils % 3.0, Basophils % 0.4 , Absolute Granulocytes 5.0, Absolute Lymphocytes 2.8, Absolute Monocytes 0.9 H , Absolute Eosinophils 0.3, Absolute Basophils 0, PUBS MCHC 33.3 Impression/Plan Impression/Plan Impression/Plan: Impression 35-year-old woman with alcohol dependence and history of withdrawal seizures, anxiety, bipolar, depression, hepatitis C and asthma. Upgraded to the ICU for Ativan drip given significant alcohol withdrawal. Plan - Ativan drip to CIWA protocol - Librium 50 mg by mouth every 6 - Monitor and replete electrolytes as needed - Thiamine, folic acid, multivitamins PO - Psychiatry input appreciated - Haldol per psychiatry DVT prophylaxis at all times TTS 35 minutes
--- NOTE | 2016-07-14 09:49 | NUR ---
PT MADE GEN MED. WALKING AROUND ROOM INDEPENDENTLY. STEADY GAIT NOTED. PT CALM AND COOPERATIVE. SITTER AT BEDSIDE
--- NOTE | 2016-07-14 10:25 | NUR ---
0800: RECEIVED PT UP AND MOVING AROUND IN ROOM. A+OX3. ON RA. LUNGS CLEAR, DENIES SOB. NSR ON MONITOR. AFEBRILE, MANUAL B/P 112/64. ABDOMEN SOFT, +BS. VOIDING IN TOILET. SKIN INTACT, RASH TO BOTTOM, ALSO RASH TO WHERE TELE LEADS WERE. BENADRYL CREAM ORDERED. PT HAS STEADY GAIT, SITTER AT BEDSIDE. PT CALM AND COOPERATIVE. DENIES HEAD ACHE, NAUSEA, CHILLS, NO TREMOR NOTED.
--- NOTE | 2016-07-14 11:44 | NUR ---
PT STATING SHE IS FEELING ANXIOUS AND IS ABOUT TO "GO THRU THE ROOF" PRN ATIVAN GIVEN PER CIWA. WILL MONITOR.
--- NOTE | 2016-07-14 11:55 | PN- Psychiatry ---
Assessment/Plan Impression: Identifying Info: 35-year-old single female presents to [facility] emergency department on 07/05/2016 for alcohol withdrawal detox. Admitted for elevated to scores and seizure history. Now downgraded to general medical service but remains in critical care unit. SUBJECTIVE Patient with no complaints at this time, states her mood is "good." States she was feeling manic yesterday and endorses history of bipolar disorder. Requests medications including multiple antidepressants and Vivitrol injection. Educated on would be appropriate options for bipolar disorder states she would be agreeable to a mood stabilizer. Also states she has hidden a restraint tilley somewhere in the room. States she does not want residential treatment post detox, would prefer intensive outpatient. Brief ROS Gait: Steady Sleep: Decreased Appetite: Adequate OBJECTIVE Mental Status Exam Presentation/Appearance: Calm. Cooperative with evaluation. Hospital garb. Sitting in bed Orientation: Alert and oriented 4 Sensorium: Awake and alert Eye contact: Appropriate Affect: Full range and congruent with stated mood Mood: Elevated Depression: Denies Anxiety: Endorses some anxiety related to wanting to be able to attend her father's wedding on the of this month Thought Content: - Denies SI/HI, AH/VH, PI. States and also believes they will not kill themselves. - Denies Hopeless/Helpless Thoughts Thought Process: Linear Speech: Normal tone and rate and prosody Judgment: Fair Insight: Fair Cognition: Memory: Grossly intact, some short-term deficits related to recent withdrawal delirium Attention/Concentration: Attends well to interview MMSE: (not completed) Per nursing report patient's Ativan drip has been discontinued since noon yesterday. Patient does appear to have been somewhat elevated. No unsafe behaviors or confusion for a few days. No confusion or response to internal stimuli observed. CIWAs have been between 0 over the past 24 hours. ASSESSMENT 35-year-old single female with history of polysubstance dependence and and bipolar disorder presents today with greatly improved alcohol withdrawal delirium. While at present patient does not meet criteria for inpatient hospitalization she does appear somewhat hypomanic. She she would likely benefit from an agent for mood stabilization. She no longer appears to be hallucinating. Differential diagnosis Alcohol use disorder, severe Alcohol withdrawal, with perceptual disturbances, resolving Opiate use disorder Phencyclidine use disorder Unspecified mood disorder versus substance induced mood disorder Unspecified bipolar disorder By report history of ADHD Suggestion: 1. Agree with discontinuation of Haldol. 2. Please advance Librium taper to 50 mg every 8H to monitor for signs of withdrawal while this is Live 3. Continue EtOH detox protocol including vitamin supplementation. 4. Please discontinue sitter at this time patient has displayed safe behaviors over the past 48 hours. Continue to monitor for need to restart. 5. Appreciate social work assistance with disposition and recommendations and planning. Thank you for including psychiatry in this case we'll continue to follow. Live Sampson APRN, pager [phone] Subjective Subjective: .
--- NOTE | 2016-07-14 12:24 | NUR ---
PT STATES MOST OF HER ANXIETY IS RELATED TO FINDING A PLACE TO STAY ONCE SHE IS DISCHARGED. SOCIAL WORK ON BOARD.
--- NOTE | 2016-07-14 14:34 | NUR ---
Following patients progress as it relates to Sandra's detox. Much improved; alert and cooperative today. Have been able to receive authorization from [facility] for additional units covering this admission until July 17. I met with Sandra this afternoon, along with psychiatric QUILL PICKING MACHINE OPERATOR Augustine Sampson. Sandra was in a jovial mood; pleasant and unpulsed by her situation as it relates to no permanaent housing. When Live and I queried here about "what if the medical team said you could go...."; she mimed dialing the phone and calling a friend. She is not interested in a snf referral and self reports that she has been thrown out of the local motels (on [address] in [place], and on [address] in [place]). Sandra reports that she will utilize [employer] for transportation assistance. Case discussed with Dr. Trujillo. Psych and I are both in agreement with returning Sandra's phone to her so she may be able to make calls on her own behalf. Will reassess on 07/17.
--- NOTE | 2016-07-14 15:02 | NUR ---
JAMAL D/C'D. PT CALM AND COOPERATIVE.
--- NOTE | 2016-07-14 16:53 | NUR ---
PT WAS STATING SHE WAS FEELING VERY ANXIOUS, AGITATED, HEAD ACHE, PT ASKING FOR ATIVAN, PT SCORING ON CIWA. PT PACING AROUND ROOM, CLEANING. PT TRYING TO FIND HOUSING FOR WHEN SHE IS D/C'D. PT'S IV WAS INFILTRATING SO IT WAS REMOVED. PT IS VERY TOUGH STICK, NO IV ACCESS. MD BERTRAND MADE AWARE. ONE TIME DOSE 1MG PO ATIVAN GIVEN.
[2016-07-15] VITALS: BP 96/48
[2016-07-15 08:00] VITALS: BP 98/60
--- NOTE | 2016-07-15 12:06 | PN- Housestaff ---
See Addendum Subjective Follow-up For: Alcohol detox Subjective: Patient seen and examined. She is seen sitting upright at the edge of her bed talking on her phone. She appears to be in no acute distress. She is pleasant and cooperative with the interview. She reports sleeping well last night and has no complaints at this time. Additionally she denies any headache, fever, chills, chest pain, shortness of breath, nausea, vomiting, diarrhea. No overnight events reported. Review of Systems Constitutional: Reports: see HPI. Objective Last 24 Hrs of Vital Signs/I&O Vital Signs Date Time Temp Pulse Resp B/P Pulse O2 O2 Flow FiO2 Ox Delivery Rate 07/15 08 98.0 71 20 98/60 99 Room Air 07/15 0000 98.1 54 16 96/48 07/15 0000 98.1 54 16 48 98 Room Air 07/14 1700 98.9 74 18 110/68 07/14 1600 99.3 68 18 114/68 07/14 1600 99.3 68 18 114/68 99 Room Air 07/14 1245 98.0 72 18 100/68 Intake & Output 07/15 1600 07/15 0800 07/15 0000 Intake Total 240 800 Output Total Balance 240 800 Intake, Oral 240 800 Number 1 Bowel Movements Physical Exam General Appearance: Alert, Oriented X3, Cooperative, No Acute Distress Other Physical Findings: General -well-developed, well-nourished young woman in no acute distress HEENT - NCAT, PERRL, EOMI, anicteric sclera Cardio - S1, S2 w/o murmurs/gallops/rubs Resp - CTA bilaterally w/o wheezing/rhochi/crackles GI - soft, nontender, nondistended, bowel sounds present Neuro - Awake and alert, CN II - XII grossly intact Extremities - no edema, pulses intact Current Medications: Current Medications Sig/Bruna Start time Last Medication Dose Route Stop Time Status Admin Acetaminophen 650 MG Q6P PRN 07/05 2315 AC 07/10 PO 0154 Chlordiazepoxide HCl 50 MG Q8 07/14 2200 AC 07/15 PO 0820 Chlordiazepoxide HCl 50 MG Q6 07/10 1200 DC 07/14 PO 1115 Diphenhydramine HCl 25 MG DAILY PRN 07/14 1615 AC 07/14 PO 1607 Diphenhydramine HCl 1 MARKELL DAILY 07/14 1000 AC 07/15 TOP 0937 Docusate Sodium 100 MG DAILY NEEDED PRN 07/11 0915 AC 07/11 PO 0924 Enoxaparin Sodium 40 MG DAILY 07/06 1000 AC 07/14 SC 0943 Folic Acid 1 MG DAILY 07/12 1032 AC 07/15 PO 0925 Ibuprofen 600 MG Q6P PRN 07/05 2315 AC 07/13 PO 0931 Loperamide HCl 2 MG BID PRN 07/14 1130 AC 07/14 PO 1427 Lorazepam 1 MG ONCE ONE 07/15 0945 DC 07/15 IM 07/15 0946 0935 Lorazepam 1 MG ONE ONE 07/14 1615 DC 07/14 PO 07/14 1616 1617 Lorazepam 0 Q1P PRN 07/09 0915 AC 07/14 IV 1148 Magnesium Chloride 64 MG DAILY 07/08 1158 AC 07/14 PO 0942 Magnesium Oxide 400 MG BID 07/14 1000 AC 07/15 PO 0925 Melatonin 5 MG AT BEDTIME 07/09 2200 AC 07/14 PO 2109 Multivitamins 1 TAB DAILY 07/09 1010 AC 07/15 PO 0925 Nicotine 14 MG DAILY 07/06 1000 AC 07/15 TOP 0924 Senna/Docusate Sodium 1 TAB BID 07/11 1000 AC 07/14 PO 2109 Thiamine HCl 100 MG DAILY 07/12 1032 AC 07/15 PO 0926 Trazodone HCl 50 MG AT BEDTIME PRN 07/10 1900 AC 07/14 PO 2109 Trimethobenzamide HCl 200 MG Q6-PRN PRN 07/09 2045 AC IM Assessment/Plan Assessment: Patient continues to tolerate her Librium taper regimen well and has required little oral Ativan supplementation. She is appropriate and cooperative with physical examination and interview this morning and has no complaints at this time. Problem list: -Alcohol detox, on Librium taper -Bipolar disorder -Smoker, on nicotine patch Metabolic/Psychiatry/Social: Patient with an extensive history of alcohol abuse/dependence admitted for voluntary alcohol detox. Patient has multiple previous admissions for similar reasons. -CIWA with Ativan PRN -Librium 50mg PO Q8H -Thiamine/Folate/Multivitamin -Nicotine Patch 14mg TOP Daily -Tigan 200mg IM Q6H PRN - nausea -Trazodone 50mg PO QHS -Psychiatry consult -Social work consult Integumentary: Patient is complaining of generalized itchyness and reports she may be sensitive to "something" in the hospital. She has received all new medications here in the past with no preivous reaction. -Benadryl 25mg PO Daily PRN - itchiness/rash Pain Plan: -Acetaminophen 650mg PO Q6H PRN PAIN 1-3 -Ibuprofen 600mg PO Q6H PRN PAIN 4-6 Diet - Regular diet DVT PPx - Lovenox Code Status - FULL CODE Problem List: 1. Alcohol abuse 2. Alcohol intoxication Pain Ratin Pain Location: None Pain Goal: Remain pain free Pain Plan: As noted in plan Tomorrow's Labs & Rationales: ICU bundle, K & Mg
[2016-07-15 16:00] VITALS: BP 94/62; BP 98/60
--- NOTE | 2016-07-15 18:26 | NUR ---
TRANSFER NOTE: PT ARRIVED TO ROOM WITH DISTRIBUTION AND ICU NURSE VIA WC, A/OX3, ROOM AIR, ANXIOUS, SKIN RED FROM PICKING AT IT, (CHIN ARMS, TOES) PT APPLIED BACTRACIN OINTMENT TO HANDS AND THEN DONNED BLUE NITRILE GLOVES BECAUSE SHE STATES "OTHERWISE I'LL CHEW MY FINGERS FROM ANXIETY", SHE STATES SHE'S 10/10 ANXIETY, NO PAIN, NO NAUSEA. VSS. WILL CONTINUE TO MONITOR.
[2016-07-15 18:28] VITALS: BP 112/58
[2016-07-16 00:01] VITALS: BP 90/60
[2016-07-16 08:08] VITALS: BP 100/50
--- NOTE | 2016-07-16 08:28 | PN- Housestaff ---
SWAPNIL DWYER,VENKAT 07/16/16 0828: Subjective Follow-up For: Alcohol detox Subjective: She appears to be in no acute distress. She is pleasant and cooperative with the interview Review of Systems Constitutional: Reports: see HPI. Objective Last 24 Hrs of Vital Signs/I&O Vital Signs Date Time Temp Pulse Resp B/P Pulse O2 O2 Flow FiO2 Ox Delivery Rate 07/17 1000 98.0 77 20 184/64 07/17 0800 98.0 77 20 184/64 07/17 0800 97.6 77 20 118/64 98 Room Air 07/16 2349 98.2 67 20 108/62 98 Room Air 07/16 1655 98.3 69 20 116/64 98 Intake & Output 07/17 1600 07/17 0800 07/17 0000 Intake Total 480 600 Output Total Balance 480 600 Intake, Oral 480 600 Physical Exam General Appearance: Alert, Oriented X3, Cooperative, No Acute Distress Cardiovascular: Regular Rate, Normal S1, Normal S2, No Murmurs Lungs: Clear to Auscultation, Normal Air Movement Abdomen: Normal Bowel Sounds, Soft, No Tenderness Extremities: No Clubbing, No Cyanosis, No Edema Assessment/Plan Assessment: Patient continues to tolerate her Librium taper regimen well and has required little oral Ativan supplementation. She is appropriate and cooperative with physical examination and interview this morning and has no complaints at this time. Problem list: -Alcohol detox, on Librium taper -Bipolar disorder -Smoker, on nicotine patch ETOH detox: Patient with an extensive history of alcohol abuse/dependence admitted for voluntary alcohol detox. Patient has multiple previous admissions for similar reasons. -CIWA with Ativan PRN -Librium 50mg PO Q8H -Thiamine/Folate/Multivitamin -Nicotine Patch 14mg TOP Daily -Tigan 200mg IM Q6H PRN - nausea -Trazodone 50mg PO QHS -Psychiatry consult -Social work consult Pain Plan: -Acetaminophen 650mg PO Q6H PRN PAIN 1-3 -Ibuprofen 600mg PO Q6H PRN PAIN 4-6 Diet - Regular diet DVT PPx - Lovenox Code Status - FULL CODE Problem List: 1. Alcohol abuse Pain Ratin Pain Location: none Pain Goal: Remain pain free Pain Plan: as mentioned in the plan Tomorrow's Labs & Rationales: Not needed JAMES GRACIA MD 07/16/16 1216: Attending MD Review Statement Attending Statement Attending MD Statement: examined this patient, discuss w/resident/PA/[employer]ATE GLASS GRINDER, agreed w/resident/PA/[employer] GLASS GRINDER, reviewed EMR data (avail) Attending Assessment/Plan: 36F PMH alcohol withdrawal seizures, anxiety, bipolar, depression, hepatitis C and asthma admitted for alcohol withdrawal with delirium tremens requiring ICU stay with continuous IV Ativan, now improved and transferred to general medicine floor. CIWA scores well controlled, patient only reports mild headache, vitals stable. Labs reviewed. Plan - Taper Librium 25mg q6h. Plan for 25mg BID tomorrow and likely discharge - Follow psychiatry recommendations - Continue vitamin supplementation - No need to check further labs - DVT PPx - Anticipated discharge tomorrow
--- NOTE | 2016-07-16 12:00 | NUR ---
THIS RN WALKED INTO ROOM TO GIVE SCHEDULED LIBRIUM TO FIND PATIENT CRYING. THE PHONE DIDN'T WORK AND HER CELL BATTERY WAS 0%. SHE FELT BETTER WHEN I RECHECKED HER 30MINUTES LATER.
[2016-07-16 16:55] VITALS: BP 116/64
[2016-07-16 23:49] VITALS: BP 108/62
--- NOTE | 2016-07-17 07:36 | PN- Housestaff ---
See Addendum Subjective Follow-up For: Alcohol detox Subjective: Seen and examined this morning. She was lying comfortably in bed in no acute distress, she strongly reportedly wishes to go home today as she has to attend a wedding, she has been explained that she is yet not safe to be discharged, otherwise no complaints, no hallucination O times no tremors, CIWA have been low , she is on Librium 25 mg every 8. Afebrile, other vitals remained with within normal limits Review of Systems Constitutional: Denies: chills, fever. Cardiovascular: Denies: chest pain, palpitations. Respiratory: Denies: cough, short of breath, sputum production. Gastrointestinal: Denies: abdominal pain, constipation, diarrhea, nausea, vomiting. Genitourinary: Denies: dysuria, frequency. Objective Last 24 Hrs of Vital Signs/I&O Vital Signs Date Time Temp Pulse Resp B/P Pulse O2 O2 Flow FiO2 Ox Delivery Rate 07/17 1000 98.0 77 20 184/64 07/17 0800 98.0 77 20 184/64 07/17 0800 97.6 77 20 118/64 98 Room Air 07/16 2349 98.2 67 20 108/62 98 Room Air 07/16 1655 98.3 69 20 116/64 98 Intake & Output 07/17 1600 07/17 0800 07/17 0000 Intake Total 480 600 Output Total Balance 480 600 Intake, Oral 480 600 Physical Exam General Appearance: Alert, Oriented X3, Cooperative, No Acute Distress Cardiovascular: Regular Rate, Normal S1, Normal S2, No Murmurs Lungs: Clear to Auscultation, Normal Air Movement Abdomen: Normal Bowel Sounds, Soft, No Tenderness Extremities: No Clubbing, No Cyanosis, No Edema Current Medications: Current Medications Sig/Bruna Start time Last Medication Dose Route Stop Time Status Admin Acetaminophen 650 MG Q6P PRN 07/05 2315 AC 07/10 PO 0154 Chlordiazepoxide HCl 25 MG Q8 07/17 0743 AC 07/17 PO 0830 Chlordiazepoxide HCl 25 MG Q6 07/16 1200 DC 07/17 PO 0624 Diphenhydramine HCl 25 MG DAILY PRN 07/14 1615 AC 07/17 PO 1043 Diphenhydramine HCl 1 MARKELL DAILY 07/14 1000 AC 07/17 TOP 1050 Docusate Sodium 100 MG DAILY NEEDED PRN 07/11 0915 AC 07/11 PO 0924 Enoxaparin Sodium 40 MG DAILY 07/06 1000 AC 07/14 SC 0943 Folic Acid 1 MG DAILY 07/12 1032 AC 07/17 PO 1045 Ibuprofen 600 MG Q6P PRN 07/05 2315 AC 07/13 PO 0931 Loperamide HCl 2 MG BID PRN 07/14 1130 AC 07/14 PO 1427 Lorazepam 1 MG Q1P PRN 07/16 0930 AC 07/17 PO 0036 Magnesium Oxide 400 MG BID 07/14 1000 AC 07/17 PO 1044 Melatonin 5 MG AT BEDTIME 07/09 2200 AC 07/16 PO 2032 Multivitamins 1 TAB DAILY 07/09 1010 AC 07/17 PO 1044 Nicotine 14 MG DAILY 07/06 1000 AC 07/17 TOP 1046 Polyethylene Glycol 17 GM DAILY 07/17 1336 AC PO Senna/Docusate Sodium 1 TAB BID 07/11 1000 AC 07/17 PO 1044 Thiamine HCl 100 MG DAILY 07/12 1032 AC 07/17 PO 1045 Trazodone HCl 50 MG ONCE ONE 07/17 0230 DC 07/17 PO 07/17 0231 0304 Trazodone HCl 50 MG AT BEDTIME PRN 07/10 1900 AC 07/16 PO 2032 Trimethobenzamide HCl 200 MG Q6-PRN PRN 07/09 2045 AC IM Assessment/Plan Assessment: Patient continues to tolerate her Librium taper regimen well and has required little oral Ativan supplementation. She is appropriate and cooperative with physical examination and interview this morning and has no complaints at this time. Problem list: -Alcohol detox, on Librium taper -Bipolar disorder -Smoker, on nicotine patch Metabolic/Psychiatry/Social: Patient with an extensive history of alcohol abuse/dependence admitted for voluntary alcohol detox. Patient has multiple previous admissions for similar reasons. -CIWA with Ativan PRN -Librium 50mg PO Q8H>> 25mg Q8 -Thiamine/Folate/Multivitamin -Nicotine Patch 14mg TOP Daily -Tigan 200mg IM Q6H PRN - nausea -Trazodone 50mg PO QHS -Psychiatry consult -Social work consult Overall itching: Patient is complaining of generalized itchyness and reports she may be sensitive to "something" in the hospital. She has received all new medications here in the past with no preivous reaction. -Benadryl 25mg PO Daily PRN - itchiness/rash Pain Plan: -Acetaminophen 650mg PO Q6H PRN PAIN 1-3 -Ibuprofen 600mg PO Q6H PRN PAIN 4-6 Diet - Regular diet DVT PPx - Lovenox Code Status - FULL CODE Problem List: 1. Alcohol abuse Pain Ratin Pain Location: none Pain Goal: Remain pain free Pain Plan: see A/P Tomorrow's Labs & Rationales: none
[2016-07-17 08:00] VITALS: BP 118/64; BP 184/64
[2016-07-17 10:00] VITALS: BP 184/64
[2016-07-17 12:00] VITALS: BP 184/64
--- NOTE | 2016-07-17 12:27 | NUR ---
Case discussed this morning in MDR's. Patient is on a librium taper which should be titrated to Q12 today, one dose tomorrow and then discharge. However, per Dr. Mary Molina, patient is adamant about discharge today, because "I've got too many things to do". Sandra has been informed that if she insists on discharge today it will be AMA; case discussed with RN. Patient asking for personal possessions which have been locked; specifically she is requesting papaerwork from [facility] which she says, includes a prescription for 2 doses of ativan. When queried about where she is going to live Sandra reports that she is "resourceful" and her boyfriend will pay for a hotel room for her. She says she still is interested in attending the IOP, and an intake appointment has been secured for her for 07/21/16 at 10:00am.
--- NOTE | 2016-07-17 15:29 | Discharge Summary ---
Hospital Course Allergies: Coded Allergies: codeine (Severe, ANAPHYLAXIS 05/15/16) venom-honey bee (BEE VENOM (HONEY BEE)) (ANAPHYLAXIS 05/15/16)
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
== END 2016-07-17 15:30 | disposition left against medical advice (07) | DRG 770 ==
LOC: ERH 09:22 → ERHI 21:31 → 2NA 21:31 → CRI 21:31 → 2NA 07-06 15:30 → CRI 07-08 18:57 → 2NB 07-15 18:23
PROVIDERS: Emergency Medicine; Internal Medicine; Internal Medicine Infectious Disease; ADMIT Internal Medicine
DX: F10.239 Alcohol dependence with withdrawal, unspecified (principal); B18.2 Chronic viral hepatitis C; F17.210 Nicotine dependence, cigarettes, uncomplicated; J45.909 Unspecified asthma, uncomplicated; E87.2 Acidosis; E83.42 Hypomagnesemia; R56.9 Unspecified convulsions; F11.20 Opioid dependence, uncomplicated; F31.9 Bipolar disorder, unspecified; Y90.7 Blood alcohol level of 200-239 mg/100 ml
CPT/HCPCS: 2NASP; 2NBP; CCU; ERO; 36415; 80307; 82436; 87086; 93005; 93010; 99232; G0480; J1630; J1650; J1885; J2060; J2405; J3101; J3250; J3490; J7060; J7120